=== PATIENT | male | born 1950 | race Caucasian/White ===

== ENCOUNTER 2017-07-03 15:36 | Inpatient (IN) | payer OTHER ==
[~2017-07-03] VITALS: Ht 185.4 cm; Wt 110.4 kg
[~2017-07-03 15:36] MED LIST: ALBUTEROL INHALER INH; ASPI-621 PO; ASPI-650 PO; CARB100T4 PO; CARB200T4 PO; CHOL10003 PO; DILT120T3 PO; DOCU240C53 PO; FAMO-79 PO; FOLI-17 PO; HEPA5000 SQ; HYDR-3237 PO; HYDR-3245 PO; IPRA3AMP INH; LEVO75TA5 PO; LOSA50TA6 PO; MAGN420T PO; MECL-76 PO; MORP15TA PO; MULT-516 PO; NYSTATIN CREAM TD; OMEP-110 PO; OXYC1TAB8 PO; POLY17PO5 PO; POTA20TA14 PO; SENN8.6T64 PO; SIMV20TA3 PO; TIOT18CA INH
[2017-07-03] MEDS ORDERED: SODIUM CHLORIDE 0.9% 1,000 ML IV ONE (15:43)
[2017-07-03] MEDS ORDERED: DILTIAZEM 5 MG/ML, 5ML ONE (15:48)
[2017-07-03 15:57] LABS: HEMATOCRIT 34.2 % (39.2-51.8); HEMOGLOBIN 11.5 g/dL (13.7-18.0); WHITE BLOOD COUNT 6.5 x10^3/uL (3.4-10)
[2017-07-03] MEDS ORDERED: SODIUM CHLORIDE FLUSH 10ML SYR IVF ONE (16:00)
[2017-07-03] MEDS ORDERED: DILTIAZEM 5 MG/ML, 5ML IV ONE (16:00)
[2017-07-03] MEDS ORDERED: DILTIAZEM 125 MG in DEXTROSE 5% 100 ML IV SCH (16:03)
[2017-07-03 16:05] LABS: ASPARTATE AMINO TRANSFERASE 23 U/L (15-37); BLOOD UREA NITROGEN 27 mg/dL (7-18)
[2017-07-03 16:10] LABS: IS PT STATUS REG ER OR PRE ER? YES
[2017-07-03] MEDS ORDERED: ASPI-496 PO (16:14)
[2017-07-03] MEDS ORDERED: ALBU18HF INH (16:15)
[2017-07-03] MEDS ORDERED: HYDR-3307 PO (16:17)
[2017-07-03] MEDS ORDERED: IBUP-1484 PO (16:18)
[2017-07-03] MEDS ORDERED: HEPARIN 5,000 UNITS/ML, 1ML IV PRN (16:30)
[2017-07-03] MEDS ORDERED: HEPARIN 5,000 UNITS/ML, 1ML IV ONE (16:30)
[2017-07-03] MEDS ORDERED: HEPARIN 25,000 UNITS/500ML PMX 500 ML IV PRN (16:30)
[2017-07-03] MEDS ORDERED: SODIUM CHLORIDE 0.9% 1,000ML IVBOLUS ONE (16:30)
[2017-07-03] MEDS ORDERED: HEPARIN 5,000 UNITS/ML, 1ML ONE (16:32)
[2017-07-03] MEDS ORDERED: HEPARIN 25,000 UNITS/500ML PMX 500 ML ONE (16:32)
[2017-07-03] MEDS ORDERED: OMNIPAQUE 350 MG/ML, 100ML BOTTLE ONE (16:47)
[2017-07-03] MEDS ORDERED: ONDANSETRON 2MG/ML, 2ML IVPush PRN (20:30)
[2017-07-03] MEDS ORDERED: HYDROcodone/APAP 10/325 MG TABLET PO PRN (20:30)
[2017-07-03] MEDS ORDERED: SODIUM CHLORIDE 0.9% 1,000 ML IV SCH (20:30)
[2017-07-03 21:27] VITALS: BP 162/67
[2017-07-03 23:03] VITALS: BP 114/72
[2017-07-03] MEDS: SODIUM CHLORIDE 0.9% 1,000 ML IV SCH (23:06)
[2017-07-03] MEDS: APIXABAN 5 MG TABLET PO SCH (23:06)
[2017-07-03] MEDS: METOPROLOL TARTRATE 25 MG TABLET PO SCH (23:07)
[2017-07-03] MEDS: SIMVASTATIN 20 MG TABLET PO SCH (23:07)
[2017-07-03] MEDS: CARBAMAZEPINE 200 MG TABLET PO SCH (23:07)
[2017-07-04 00:19] VITALS: BP 111/70
[2017-07-04 03:11] VITALS: BP 93/53
[2017-07-04] MEDS: METOPROLOL TARTRATE 25 MG TABLET PO SCH ×4 (03:27→21:32)
[2017-07-04] MEDS: ACETAMINOPHEN 325 MG TABLET PO PRN ×2 (03:34→20:36)
[2017-07-04 05:48] VITALS: BP 115/73
[2017-07-04] MEDS: LEVOTHYROXINE 200 MCG TABLET PO SCH (06:03)
[2017-07-04 06:25] LABS: BLOOD UREA NITROGEN 32 mg/dL (7-18)
[2017-07-04 08:30] VITALS: BP 137/65
[2017-07-04] MEDS: SODIUM CHLORIDE 0.9% 1,000 ML IV SCH ×2 (10:02→23:22)
[2017-07-04] MEDS: LOSARTAN 50MG TABLET PO SCH (10:10)
[2017-07-04] MEDS: MAGNESIUM OXIDE 400 MG TABLET PO SCH (10:11)
[2017-07-04] MEDS: ASPIRIN 81 MG TABLET EC PO SCH (10:11)
[2017-07-04] MEDS: APIXABAN 5 MG TABLET PO SCH ×2 (10:11→20:34)
[2017-07-04] MEDS: FOLIC ACID 1 MG TABLET PO SCH (10:11)
[2017-07-04] MEDS: DOCUSATE CALCIUM 240 MG CAPSULE PO SCH (10:12)
[2017-07-04] MEDS: CHOLECALCIFEROL 1,000 UNIT TABLET PO SCH (10:12)
[2017-07-04] MEDS: MULTIVITAMIN 1 TABLET PO SCH (10:12)
[2017-07-04] MEDS: CARBAMAZEPINE 200 MG TABLET PO SCH ×2 (10:12→20:35)
[2017-07-04] MEDS: ALBUTEROL/IPRATROPIUM 2.5MG/0.5MG, 3 ML NPPB SCH ×2 (11:22→19:48)
[2017-07-04 14:00] VITALS: BP 123/67
[2017-07-04 19:52] LABS: OCCBLD OBC PASS
[2017-07-04 20:34] VITALS: BP 128/80
[2017-07-04] MEDS: SIMVASTATIN 20 MG TABLET PO SCH (20:34)
[2017-07-05 02:32] VITALS: BP 111/68
[2017-07-05 03:37] VITALS: BP 125/73
[2017-07-05] MEDS: METOPROLOL TARTRATE 25 MG TABLET PO SCH ×4 (03:37→20:29)
[2017-07-05] MEDS: LEVOTHYROXINE 200 MCG TABLET PO SCH (05:21)
[2017-07-05 07:36] VITALS: BP 124/72
[2017-07-05] MEDS: MULTIVITAMIN 1 TABLET PO SCH (08:45)
[2017-07-05] MEDS: FOLIC ACID 1 MG TABLET PO SCH (08:45)
[2017-07-05] MEDS: CHOLECALCIFEROL 1,000 UNIT TABLET PO SCH (08:45)
[2017-07-05] MEDS: LOSARTAN 50MG TABLET PO SCH (08:45)
[2017-07-05] MEDS: MAGNESIUM OXIDE 400 MG TABLET PO SCH (08:45)
[2017-07-05] MEDS: CARBAMAZEPINE 200 MG TABLET PO SCH ×2 (08:45→20:28)
[2017-07-05] MEDS: ASPIRIN 81 MG TABLET EC PO SCH (08:45)
[2017-07-05] MEDS: APIXABAN 5 MG TABLET PO SCH (08:45)
[2017-07-05] MEDS: DOCUSATE CALCIUM 240 MG CAPSULE PO SCH ×2 (09:00→16:47)
[2017-07-05] MEDS: ALBUTEROL/IPRATROPIUM 2.5MG/0.5MG, 3 ML NPPB SCH ×2 (10:09→20:14)
[2017-07-05] MEDS: [UNRECOGNIZED DRUG - REMARK] MC SCH ×2 (11:30→16:25)
[2017-07-05] MEDS: DILTIAZEM 120 MG CAP.ER.12H PO SCH ×2 (12:57→23:45)
[2017-07-05 13:11] VITALS: BP 119/79
[2017-07-05] MEDS: ACETAMINOPHEN 325 MG TABLET PO PRN ×2 (16:46→21:35)
[2017-07-05 19:51] VITALS: BP 140/73
[2017-07-05] MEDS: SIMVASTATIN 10 MG TABLET PO SCH (20:29)
[2017-07-05] MEDS ORDERED: HEPARIN 25,000 UNITS/500ML PMX 500 ML IV PRN ×2 (21:00)
[2017-07-05] MEDS: HEPARIN 25,000 UNITS/500ML PMX 500 ML IV PRN (21:31)
[2017-07-05] MEDS: SODIUM CHLORIDE 0.9% 1,000 ML IV SCH (21:32)
[2017-07-06 01:10] VITALS: BP 110/73
[2017-07-06] MEDS: [UNRECOGNIZED DRUG - REMARK] MC SCH ×3 (03:30→18:12)
[2017-07-06 03:43] LABS: FERRITIN 273.7 ng/mL (26-388)
[2017-07-06] MEDS: METOPROLOL TARTRATE 25 MG TABLET PO SCH ×4 (04:14→23:27)
[2017-07-06] MEDS: LEVOTHYROXINE 200 MCG TABLET PO SCH (05:36)
[2017-07-06 07:46] VITALS: BP 141/81
[2017-07-06] MEDS: MAGNESIUM OXIDE 400 MG TABLET PO SCH (08:36)
[2017-07-06] MEDS: FOLIC ACID 1 MG TABLET PO SCH (08:36)
[2017-07-06] MEDS: DILTIAZEM 120 MG CAP.ER.12H PO SCH ×2 (08:36→21:19)
[2017-07-06] MEDS: LOSARTAN 50MG TABLET PO SCH (08:36)
[2017-07-06] MEDS: ASPIRIN 81 MG TABLET EC PO SCH (08:36)
[2017-07-06] MEDS: CARBAMAZEPINE 200 MG TABLET PO SCH ×2 (08:36→21:20)
[2017-07-06] MEDS: CHOLECALCIFEROL 1,000 UNIT TABLET PO SCH (08:36)
[2017-07-06] MEDS: DOCUSATE CALCIUM 240 MG CAPSULE PO SCH (08:36)
[2017-07-06] MEDS: MULTIVITAMIN 1 TABLET PO SCH (08:36)
[2017-07-06] MEDS: SODIUM CHLORIDE 0.9% 1,000 ML IV SCH (08:43)
[2017-07-06] MEDS: ALBUTEROL/IPRATROPIUM 2.5MG/0.5MG, 3 ML NPPB SCH ×2 (09:00→19:54)
[2017-07-06] MEDS ORDERED: HEPARIN 5,000 UNITS/ML, 1ML IV PRN (13:00)
[2017-07-06 13:41] VITALS: BP 146/81
[2017-07-06] MEDS: ACETAMINOPHEN 325 MG TABLET PO PRN ×2 (14:19→21:20)
[2017-07-06] MEDS: HEPARIN 25,000 UNITS/500ML PMX 500 ML IV PRN (17:22)
[2017-07-06 21:16] VITALS: BP 117/66
[2017-07-06] MEDS: SIMVASTATIN 10 MG TABLET PO SCH (21:19)
[2017-07-07 01:56] VITALS: BP 135/77
[2017-07-07 05:05] LABS: HEMATOCRIT 30.7 % (39.2-51.8); HEMOGLOBIN 10.5 g/dL (13.7-18.0)
[2017-07-07 05:10] LABS: BLOOD UREA NITROGEN 23 mg/dL (7-18)
[2017-07-07] MEDS: LEVOTHYROXINE 200 MCG TABLET PO SCH (05:30)
[2017-07-07] MEDS: SODIUM CHLORIDE 0.9% 1,000 ML IV SCH ×3 (05:30→19:30)
[2017-07-07] MEDS: METOPROLOL TARTRATE 25 MG TABLET PO SCH ×4 (05:31→21:25)
[2017-07-07] MEDS: ACETAMINOPHEN 325 MG TABLET PO PRN ×4 (05:33→22:26)
[2017-07-07] MEDS: ALBUTEROL/IPRATROPIUM 2.5MG/0.5MG, 3 ML NPPB SCH ×2 (06:52→18:15)
[2017-07-07 08:03] VITALS: BP 132/89
[2017-07-07] MEDS: MULTIVITAMIN 1 TABLET PO SCH (08:07)
[2017-07-07] MEDS: FOLIC ACID 1 MG TABLET PO SCH (08:07)
[2017-07-07] MEDS: LOSARTAN 50MG TABLET PO SCH (08:07)
[2017-07-07] MEDS: CHOLECALCIFEROL 1,000 UNIT TABLET PO SCH (08:07)
[2017-07-07] MEDS: CARBAMAZEPINE 200 MG TABLET PO SCH ×2 (08:07→21:23)
[2017-07-07] MEDS: DILTIAZEM 120 MG CAP.ER.12H PO SCH ×2 (08:08→21:00)
[2017-07-07] MEDS: MAGNESIUM OXIDE 400 MG TABLET PO SCH (08:08)
[2017-07-07] MEDS: DOCUSATE CALCIUM 240 MG CAPSULE PO SCH (08:08)
[2017-07-07 10:32] VITALS: BP 119/81
[2017-07-07] MEDS: HEPARIN 25,000 UNITS/500ML PMX 500 ML IV PRN (10:42)
[2017-07-07 15:46] VITALS: BP 147/82
[2017-07-07] MEDS ORDERED: GOLYTELY 4,000ML ORAL.SOL PO ONE (17:00)
[2017-07-07] MEDS ORDERED: HYDROcodone/APAP 10/325 MG TABLET PO PRN (19:30)
[2017-07-07 20:52] VITALS: BP 145/97
[2017-07-07] MEDS: SIMVASTATIN 10 MG TABLET PO SCH (21:23)
[2017-07-08 00:34] VITALS: BP 147/72
[2017-07-08] MEDS: SODIUM CHLORIDE 0.9% 1,000 ML IV SCH ×2 (05:08→22:03)
[2017-07-08] MEDS: LEVOTHYROXINE 200 MCG TABLET PO SCH (05:21)
[2017-07-08] MEDS: METOPROLOL TARTRATE 25 MG TABLET PO SCH ×4 (05:22→22:02)
[2017-07-08 08:17] VITALS: BP 153/80
[2017-07-08] MEDS: ALBUTEROL/IPRATROPIUM 2.5MG/0.5MG, 3 ML NPPB SCH ×2 (09:00→18:59)
[2017-07-08] MEDS: DILTIAZEM 120 MG CAP.ER.12H PO SCH ×2 (09:28→20:19)
[2017-07-08] MEDS ORDERED: ONDANSETRON 2MG/ML, 2ML ONE (11:05)
[2017-07-08] MEDS ORDERED: PROPOFOL 10 MG/ML, 20ML ONE (11:05)
[2017-07-08] MEDS ORDERED: DEXAMETHASONE 4 MG/ML, 1ML ONE (11:05)
[2017-07-08] MEDS ORDERED: ACETAMINOPHEN 325 MG TABLET PO PRN (12:00)
[2017-07-08] MEDS ORDERED: LABETALOL 5MG/ML, 20ML IV PRN (12:00)
[2017-07-08] MEDS ORDERED: hydrALAzine 20 MG/ML, 1ML IV PRN (12:00)
[2017-07-08] MEDS ORDERED: ONDANSETRON 2MG/ML, 2ML IVPush PRN (12:00)
[2017-07-08] MEDS ORDERED: PROMETHAZINE 25 MG/ML, 1ML IV PRN (12:00)
[2017-07-08] MEDS ORDERED: OXYcodone 5 MG/5 ML ORAL.SOL UDC PO PRN (12:00)
[2017-07-08] MEDS ORDERED: MEPERIDINE/PF 25MG/0.5ML IVPush PRN (12:00)
[2017-07-08] MEDS ORDERED: MIDAZOLAM 1 MG/ML, 2ML IV PRN (12:00)
[2017-07-08] MEDS ORDERED: ALBUTEROL SULFATE 2.5 MG/3 ML NPPB PRN (12:00)
[2017-07-08] MEDS ORDERED: HYDROmorphone 1 MG/ML, 1ML IV PRN (12:00)
[2017-07-08] MEDS ORDERED: FENTANYL PF 100 MCG/2ML IV PRN (12:00)
[2017-07-08] MEDS: CHOLECALCIFEROL 1,000 UNIT TABLET PO SCH (12:51)
[2017-07-08] MEDS: MULTIVITAMIN 1 TABLET PO SCH (12:51)
[2017-07-08] MEDS: CARBAMAZEPINE 200 MG TABLET PO SCH ×2 (12:51→20:19)
[2017-07-08] MEDS: LOSARTAN 50MG TABLET PO SCH (12:52)
[2017-07-08] MEDS: DOCUSATE CALCIUM 240 MG CAPSULE PO SCH (12:52)
[2017-07-08] MEDS: FOLIC ACID 1 MG TABLET PO SCH (12:52)
[2017-07-08] MEDS: MAGNESIUM OXIDE 400 MG TABLET PO SCH (12:52)
[2017-07-08] MEDS: ACETAMINOPHEN 325 MG TABLET PO PRN (12:55)
[2017-07-08] MEDS ORDERED: HEPARIN 5,000 UNITS/ML, 1ML IV PRN (13:00)
[2017-07-08] MEDS ORDERED: HEPARIN 25,000 UNITS/500ML PMX 500 ML IV PRN (13:00)
[2017-07-08 13:52] VITALS: BP 134/76
[2017-07-08 20:10] VITALS: BP 111/70
[2017-07-08] MEDS: APIXABAN 5 MG TABLET PO SCH (20:18)
[2017-07-08] MEDS: SIMVASTATIN 10 MG TABLET PO SCH (20:19)
[2017-07-08] MEDS ORDERED: DILTIAZEM 5 MG/ML, 5ML IVPush ONE (21:30)
[2017-07-09 02:06] VITALS: BP 113/75
[2017-07-09] MEDS: LEVOTHYROXINE 200 MCG TABLET PO SCH (05:53)
[2017-07-09] MEDS: METOPROLOL TARTRATE 25 MG TABLET PO SCH ×3 (05:54→17:25)
[2017-07-09 08:06] VITALS: BP 119/74
[2017-07-09] MEDS: DOCUSATE CALCIUM 240 MG CAPSULE PO SCH (08:16)
[2017-07-09] MEDS: MULTIVITAMIN 1 TABLET PO SCH (08:16)
[2017-07-09] MEDS: FOLIC ACID 1 MG TABLET PO SCH (08:17)
[2017-07-09] MEDS: CHOLECALCIFEROL 1,000 UNIT TABLET PO SCH (08:17)
[2017-07-09] MEDS: CARBAMAZEPINE 200 MG TABLET PO SCH ×2 (08:17→21:23)
[2017-07-09] MEDS: APIXABAN 5 MG TABLET PO SCH ×2 (08:17→21:23)
[2017-07-09] MEDS: MAGNESIUM OXIDE 400 MG TABLET PO SCH (08:17)
[2017-07-09] MEDS: LOSARTAN 50MG TABLET PO SCH (08:17)
[2017-07-09] MEDS: DILTIAZEM 120 MG CAP.ER.12H PO SCH ×2 (08:18→21:24)
[2017-07-09] MEDS: ALBUTEROL/IPRATROPIUM 2.5MG/0.5MG, 3 ML NPPB SCH ×2 (09:55→19:55)
[2017-07-09] MEDS: SODIUM CHLORIDE 0.9% 1,000 ML IV SCH (11:30)
[2017-07-09 13:40] VITALS: BP 138/80
[2017-07-09 18:46] VITALS: BP 145/77
[2017-07-09] MEDS: SIMVASTATIN 10 MG TABLET PO SCH (21:23)
[2017-07-10] MEDS: SODIUM CHLORIDE 0.9% 1,000 ML IV SCH ×2 (01:15→13:52)
[2017-07-10] MEDS: ACETAMINOPHEN 325 MG TABLET PO PRN (01:40)
[2017-07-10 03:49] VITALS: BP 157/76
[2017-07-10 06:05] VITALS: BP 133/88
[2017-07-10] MEDS: LEVOTHYROXINE 200 MCG TABLET PO SCH (06:09)
[2017-07-10] MEDS: METOPROLOL TARTRATE 25 MG TABLET PO SCH ×2 (06:09→17:27)
[2017-07-10 06:45] VITALS: BP 138/86
[2017-07-10] MEDS: MULTIVITAMIN 1 TABLET PO SCH (08:40)
[2017-07-10] MEDS: FOLIC ACID 1 MG TABLET PO SCH (08:40)
[2017-07-10] MEDS: APIXABAN 5 MG TABLET PO SCH ×2 (08:40→20:30)
[2017-07-10] MEDS: LOSARTAN 50MG TABLET PO SCH (08:40)
[2017-07-10] MEDS: CARBAMAZEPINE 200 MG TABLET PO SCH ×2 (08:40→20:30)
[2017-07-10] MEDS: MAGNESIUM OXIDE 400 MG TABLET PO SCH (08:40)
[2017-07-10] MEDS: CHOLECALCIFEROL 1,000 UNIT TABLET PO SCH (08:40)
[2017-07-10] MEDS: DILTIAZEM 120 MG CAP.ER.12H PO SCH ×2 (08:42→20:29)
[2017-07-10] MEDS: ALBUTEROL/IPRATROPIUM 2.5MG/0.5MG, 3 ML NPPB SCH ×2 (09:18→19:58)
[2017-07-10] MEDS ORDERED: LEVO200T PO (10:37)
[2017-07-10] MEDS ORDERED: METO25TA35 PO (10:37)
[2017-07-10] MEDS ORDERED: DILT120C11 PO (10:37)
[2017-07-10] MEDS ORDERED: APIX5TAB PO (10:37)
[2017-07-10] MEDS ORDERED: OMEP-110 PO (10:41)
[2017-07-10 14:18] VITALS: BP 123/69
[2017-07-10] MEDS ORDERED: DIGOXIN 0.25 MG/ML, 2ML IVPush ONE (16:30)
[2017-07-10 20:14] VITALS: BP 116/78
[2017-07-10] MEDS: DOCUSATE CALCIUM 240 MG CAPSULE PO SCH (20:29)
[2017-07-10] MEDS: SIMVASTATIN 10 MG TABLET PO SCH (20:31)
[2017-07-11 02:06] VITALS: BP 133/73
[2017-07-11] MEDS: SODIUM CHLORIDE 0.9% 1,000 ML IV SCH ×3 (03:30→15:11)
[2017-07-11 05:35] VITALS: BP 124/84
[2017-07-11] MEDS: LEVOTHYROXINE 200 MCG TABLET PO SCH (05:38)
[2017-07-11] MEDS: METOPROLOL TARTRATE 25 MG TABLET PO SCH ×2 (05:39→17:49)
[2017-07-11 06:19] LABS: BLOOD UREA NITROGEN 37 mg/dL (7-18)
[2017-07-11 06:42] VITALS: BP 128/87
[2017-07-11] MEDS: MULTIVITAMIN 1 TABLET PO SCH (08:29)
[2017-07-11] MEDS: CARBAMAZEPINE 200 MG TABLET PO SCH ×2 (08:29→19:58)
[2017-07-11] MEDS: CHOLECALCIFEROL 1,000 UNIT TABLET PO SCH (08:29)
[2017-07-11] MEDS: MAGNESIUM OXIDE 400 MG TABLET PO SCH (08:30)
[2017-07-11] MEDS: DOCUSATE CALCIUM 240 MG CAPSULE PO SCH (08:30)
[2017-07-11] MEDS: DILTIAZEM 120 MG CAP.ER.12H PO SCH ×2 (08:31→19:58)
[2017-07-11] MEDS: DIGOXIN 0.125 MG TABLET PO SCH (08:31)
[2017-07-11] MEDS: LOSARTAN 50MG TABLET PO SCH (08:31)
[2017-07-11] MEDS: APIXABAN 5 MG TABLET PO SCH ×2 (08:56→19:58)
[2017-07-11] MEDS: FOLIC ACID 1 MG TABLET PO SCH (08:56)
[2017-07-11] MEDS: ALBUTEROL/IPRATROPIUM 2.5MG/0.5MG, 3 ML NPPB SCH ×2 (09:42→19:34)
[2017-07-11 12:57] VITALS: BP 109/76
[2017-07-11 14:59] LABS: HEMATOCRIT 32.9 % (39.2-51.8); HEMOGLOBIN 11.2 g/dL (13.7-18.0); WHITE BLOOD COUNT 5.7 x10^3/uL (3.4-10)
[2017-07-11 18:41] VITALS: BP 138/68
[2017-07-11] MEDS: METOPROLOL 1 MG/ML, 5ML IVPush PRN (18:41)
[2017-07-11] MEDS: SIMVASTATIN 10 MG TABLET PO SCH (19:58)
[2017-07-12 01:16] VITALS: BP 109/77
[2017-07-12] MEDS: SODIUM CHLORIDE 0.9% 1,000 ML IV SCH ×2 (03:48→16:57)
[2017-07-12] MEDS: LEVOTHYROXINE 200 MCG TABLET PO SCH (05:56)
[2017-07-12 07:25] LABS: HEMATOCRIT 32.9 % (39.2-51.8); HEMOGLOBIN 11.1 g/dL (13.7-18.0); WHITE BLOOD COUNT 7.3 x10^3/uL (3.4-10)
[2017-07-12 07:34] LABS: BLOOD UREA NITROGEN 39 mg/dL (7-18)
[2017-07-12 07:37] VITALS: BP 159/81
[2017-07-12 07:38] LABS: ASPARTATE AMINO TRANSFERASE 20 U/L (15-37)
[2017-07-12] MEDS: CARBAMAZEPINE 200 MG TABLET PO SCH ×2 (08:31→20:07)
[2017-07-12] MEDS: MAGNESIUM OXIDE 400 MG TABLET PO SCH (08:31)
[2017-07-12] MEDS: FERROUS GLUCONATE 324 MG TABLET PO SCH (08:31)
[2017-07-12] MEDS: CHOLECALCIFEROL 1,000 UNIT TABLET PO SCH (08:31)
[2017-07-12] MEDS: DOCUSATE CALCIUM 240 MG CAPSULE PO SCH (08:31)
[2017-07-12] MEDS: FOLIC ACID 1 MG TABLET PO SCH (08:34)
[2017-07-12] MEDS: DIGOXIN 0.125 MG TABLET PO SCH (08:34)
[2017-07-12] MEDS: METOPROLOL TARTRATE 25 MG TABLET PO SCH ×2 (08:34→17:47)
[2017-07-12] MEDS: APIXABAN 5 MG TABLET PO SCH ×2 (08:35→20:06)
[2017-07-12] MEDS: LOSARTAN 50MG TABLET PO SCH (08:35)
[2017-07-12] MEDS: DILTIAZEM 120 MG CAP.ER.12H PO SCH ×2 (08:35→20:06)
[2017-07-12] MEDS: MULTIVITAMIN 1 TABLET PO SCH (08:36)
[2017-07-12] MEDS: ALBUTEROL/IPRATROPIUM 2.5MG/0.5MG, 3 ML NPPB SCH ×2 (09:00→20:34)
[2017-07-12 13:44] VITALS: BP 132/82
[2017-07-12] MEDS: METOPROLOL 1 MG/ML, 5ML IVPush PRN (15:59)
[2017-07-12] MEDS: SIMVASTATIN 10 MG TABLET PO SCH (20:07)
[2017-07-12 20:10] VITALS: BP 118/81
[2017-07-12] MEDS ORDERED: METOPROLOL 1 MG/ML, 5ML IVPush ONE (21:00)
[2017-07-12] MEDS ORDERED: METOPROLOL 1 MG/ML, 5ML IVPush PRN (21:00)
[2017-07-12] MEDS: ACETAMINOPHEN 325 MG TABLET PO PRN (21:44)
[2017-07-13 01:24] VITALS: BP 112/72
[2017-07-13] MEDS: SODIUM CHLORIDE 0.9% 1,000 ML IV SCH ×2 (05:36→17:35)
[2017-07-13] MEDS: LEVOTHYROXINE 200 MCG TABLET PO SCH (05:36)
[2017-07-13] MEDS: METOPROLOL TARTRATE 25 MG TABLET PO SCH ×2 (05:36→17:32)
[2017-07-13] MEDS: ONDANSETRON 2MG/ML, 2ML IVPush PRN (05:52)
[2017-07-13 06:46] VITALS: BP 125/77
[2017-07-13] MEDS: DIGOXIN 0.125 MG TABLET PO SCH (08:46)
[2017-07-13] MEDS: APIXABAN 5 MG TABLET PO SCH ×2 (08:46→19:54)
[2017-07-13] MEDS: LOSARTAN 50MG TABLET PO SCH (08:46)
[2017-07-13] MEDS: CHOLECALCIFEROL 1,000 UNIT TABLET PO SCH (08:46)
[2017-07-13] MEDS: MAGNESIUM OXIDE 400 MG TABLET PO SCH (08:46)
[2017-07-13] MEDS: DOCUSATE CALCIUM 240 MG CAPSULE PO SCH (08:46)
[2017-07-13] MEDS: CARBAMAZEPINE 200 MG TABLET PO SCH ×2 (08:46→19:54)
[2017-07-13] MEDS: FERROUS GLUCONATE 324 MG TABLET PO SCH (08:46)
[2017-07-13] MEDS: DILTIAZEM 120 MG CAP.ER.12H PO SCH ×2 (08:47→19:54)
[2017-07-13] MEDS: MULTIVITAMIN 1 TABLET PO SCH (08:47)
[2017-07-13] MEDS: ALBUTEROL/IPRATROPIUM 2.5MG/0.5MG, 3 ML NPPB SCH ×2 (09:00→21:35)
[2017-07-13] MEDS: ACETAMINOPHEN 325 MG TABLET PO PRN ×3 (12:02→21:24)
[2017-07-13 15:45] VITALS: BP 132/73
[2017-07-13 18:26] VITALS: BP 124/92
[2017-07-13] MEDS: SIMVASTATIN 10 MG TABLET PO SCH (19:54)
[2017-07-14] VITALS (7 sets, daily range): BP systolic 97–129; BP diastolic 63–93
[2017-07-14] MEDS: METOPROLOL TARTRATE 25 MG TABLET PO SCH (05:01)
[2017-07-14] MEDS: LEVOTHYROXINE 200 MCG TABLET PO SCH (05:01)
[2017-07-14] MEDS: SODIUM CHLORIDE 0.9% 1,000 ML IV SCH ×2 (06:46→21:08)
[2017-07-14] MEDS: DILTIAZEM 120 MG CAP.ER.12H PO SCH ×2 (08:26→21:07)
[2017-07-14] MEDS: CHOLECALCIFEROL 1,000 UNIT TABLET PO SCH (08:26)
[2017-07-14] MEDS: CARBAMAZEPINE 200 MG TABLET PO SCH ×2 (08:26→21:07)
[2017-07-14] MEDS: DIGOXIN 0.125 MG TABLET PO SCH (08:27)
[2017-07-14] MEDS: APIXABAN 5 MG TABLET PO SCH ×2 (08:27→21:07)
[2017-07-14] MEDS: MULTIVITAMIN 1 TABLET PO SCH (08:27)
[2017-07-14] MEDS: DOCUSATE CALCIUM 240 MG CAPSULE PO SCH (08:27)
[2017-07-14] MEDS: MAGNESIUM OXIDE 400 MG TABLET PO SCH (08:27)
[2017-07-14] MEDS: LOSARTAN 50MG TABLET PO SCH (08:28)
[2017-07-14] MEDS: FERROUS GLUCONATE 324 MG TABLET PO SCH (08:28)
[2017-07-14] MEDS: ALBUTEROL/IPRATROPIUM 2.5MG/0.5MG, 3 ML NPPB SCH ×2 (09:20→20:40)
[2017-07-14] MEDS: METOPROLOL TARTRATE 50 MG TABLET PO SCH ×3 (10:49→22:45)
[2017-07-14] MEDS: ACETAMINOPHEN 325 MG TABLET PO PRN (12:00)
[2017-07-14] MEDS: ONDANSETRON 2MG/ML, 2ML IVPush PRN (19:22)
[2017-07-14] MEDS: SIMVASTATIN 10 MG TABLET PO SCH (21:07)
[2017-07-15 01:54] VITALS: BP 92/55
[2017-07-15 06:11] VITALS: BP 116/75
[2017-07-15] MEDS: LEVOTHYROXINE 200 MCG TABLET PO SCH (06:12)
[2017-07-15] MEDS: METOPROLOL TARTRATE 50 MG TABLET PO SCH ×4 (06:12→21:35)
[2017-07-15 07:30] LABS: HEMATOCRIT 28.1 % (39.2-51.8); HEMOGLOBIN 9.5 g/dL (13.7-18.0); WHITE BLOOD COUNT 8.2 x10^3/uL (3.4-10)
[2017-07-15 07:41] LABS: ASPARTATE AMINO TRANSFERASE 22 U/L (15-37); BLOOD UREA NITROGEN 42 mg/dL (7-18)
[2017-07-15] MEDS: ACETAMINOPHEN 325 MG TABLET PO PRN ×2 (07:53→18:02)
[2017-07-15 07:57] VITALS: BP 121/72
[2017-07-15] MEDS: ALBUTEROL/IPRATROPIUM 2.5MG/0.5MG, 3 ML NPPB SCH ×2 (08:00→19:01)
[2017-07-15] MEDS: LOSARTAN 25MG TABLET PO SCH (08:34)
[2017-07-15] MEDS: CHOLECALCIFEROL 1,000 UNIT TABLET PO SCH (08:35)
[2017-07-15] MEDS: MAGNESIUM OXIDE 400 MG TABLET PO SCH (08:35)
[2017-07-15] MEDS: DOCUSATE CALCIUM 240 MG CAPSULE PO SCH (08:35)
[2017-07-15] MEDS: FERROUS GLUCONATE 324 MG TABLET PO SCH ×3 (08:35→21:35)
[2017-07-15] MEDS: CARBAMAZEPINE 200 MG TABLET PO SCH ×2 (08:35→21:34)
[2017-07-15] MEDS: DILTIAZEM 120 MG CAP.ER.12H PO SCH ×2 (08:36→21:35)
[2017-07-15] MEDS: DIGOXIN 0.125 MG TABLET PO SCH (08:36)
[2017-07-15] MEDS: MULTIVITAMIN 1 TABLET PO SCH (08:36)
[2017-07-15] MEDS ORDERED: SODIUM CHLORIDE 0.9% 1,000 ML IV SCH (08:57)
[2017-07-15] MEDS ORDERED: REGADENOSON 0.4 MG/5 ML SYRINGE ONE (09:08)
[2017-07-15] MEDS: SODIUM CHLORIDE 0.9% 1,000 ML IV SCH (13:06)
[2017-07-15 18:04] VITALS: BP 115/80
[2017-07-15 19:56] VITALS: BP 102/67
[2017-07-15] MEDS: SIMVASTATIN 10 MG TABLET PO SCH (21:34)
[2017-07-16 00:19] VITALS: BP 102/65
[2017-07-16] MEDS: SODIUM CHLORIDE 0.9% 1,000 ML IV SCH ×2 (02:00→17:37)
[2017-07-16] MEDS: LEVOTHYROXINE 200 MCG TABLET PO SCH (06:10)
[2017-07-16 07:45] VITALS: BP 135/81
[2017-07-16] MEDS ORDERED: FENTANYL PF 100 MCG/2ML ONE (07:58)
[2017-07-16] MEDS ORDERED: ISOPROTERENOL 0.2MG/ML, 5ML ONE (07:58)
[2017-07-16] MEDS ORDERED: ADENOSINE 6 MG/2 ML ONE (07:58)
[2017-07-16] MEDS ORDERED: MIDAZOLAM 1 MG/ML, 5ML ONE (07:58)
[2017-07-16] MEDS ORDERED: LIDOCAINE 2%, 20ML ONE (07:59)
[2017-07-16] MEDS: METOPROLOL TARTRATE 50 MG TABLET PO SCH ×3 (08:00→20:38)
[2017-07-16] MEDS: ALBUTEROL/IPRATROPIUM 2.5MG/0.5MG, 3 ML NPPB SCH ×2 (08:13→14:30)
[2017-07-16 08:14] LABS: HEMATOCRIT 30.4 % (39.2-51.8); HEMOGLOBIN 10.1 g/dL (13.7-18.0); WHITE BLOOD COUNT 7.5 x10^3/uL (3.4-10)
[2017-07-16 08:20] LABS: BLOOD UREA NITROGEN 45 mg/dL (7-18)
[2017-07-16] MEDS: DIGOXIN 0.125 MG TABLET PO SCH (09:00)
[2017-07-16] MEDS: DILTIAZEM 120 MG CAP.ER.12H PO SCH (09:00)
[2017-07-16] MEDS ORDERED: DIPHENHYDRAMINE 50 MG/ML, 1ML ONE (09:41)
[2017-07-16 10:18] VITALS: BP 126/74
[2017-07-16] MEDS: DOCUSATE CALCIUM 240 MG CAPSULE PO SCH (10:33)
[2017-07-16] MEDS: CARBAMAZEPINE 200 MG TABLET PO SCH ×2 (10:35→20:37)
[2017-07-16] MEDS: MAGNESIUM OXIDE 400 MG TABLET PO SCH (10:36)
[2017-07-16] MEDS: FERROUS GLUCONATE 324 MG TABLET PO SCH ×3 (10:36→20:38)
[2017-07-16] MEDS: MULTIVITAMIN 1 TABLET PO SCH (10:38)
[2017-07-16] MEDS: CHOLECALCIFEROL 1,000 UNIT TABLET PO SCH (10:39)
[2017-07-16] MEDS: LOSARTAN 25MG TABLET PO SCH (10:42)
[2017-07-16] MEDS: ACETAMINOPHEN 325 MG TABLET PO PRN (12:58)
[2017-07-16 13:50] VITALS: BP 153/77
[2017-07-16] MEDS ORDERED: ALBUTEROL/IPRATROPIUM 2.5MG/0.5MG, 3 ML NPPB PRN (14:30)
[2017-07-16 20:30] VITALS: BP 119/63
[2017-07-16] MEDS: SIMVASTATIN 10 MG TABLET PO SCH (20:37)
[2017-07-17 01:40] VITALS: BP 129/78
[2017-07-17 05:25] LABS: HEMATOCRIT 27.2 % (39.2-51.8); HEMOGLOBIN 9.3 g/dL (13.7-18.0); WHITE BLOOD COUNT 6.5 x10^3/uL (3.4-10)
[2017-07-17] MEDS: LEVOTHYROXINE 200 MCG TABLET PO SCH (05:29)
[2017-07-17 05:34] LABS: BLOOD UREA NITROGEN 47 mg/dL (7-18)
[2017-07-17 07:15] VITALS: BP 157/74
[2017-07-17] MEDS: SODIUM CHLORIDE 0.9% 1,000 ML IV SCH (07:22)
[2017-07-17] MEDS: DOCUSATE CALCIUM 240 MG CAPSULE PO SCH (08:17)
[2017-07-17] MEDS: CARBAMAZEPINE 200 MG TABLET PO SCH (08:17)
[2017-07-17] MEDS: CHOLECALCIFEROL 1,000 UNIT TABLET PO SCH (08:17)
[2017-07-17] MEDS: MAGNESIUM OXIDE 400 MG TABLET PO SCH (08:17)
[2017-07-17] MEDS: MULTIVITAMIN 1 TABLET PO SCH (08:17)
[2017-07-17] MEDS: FERROUS GLUCONATE 324 MG TABLET PO SCH (08:17)
[2017-07-17] MEDS: METOPROLOL TARTRATE 50 MG TABLET PO SCH (08:17)
[2017-07-17] MEDS: ALBUTEROL/IPRATROPIUM 2.5MG/0.5MG, 3 ML NPPB SCH (09:25)
[2017-07-17] MEDS ORDERED: METO50TA82 PO (11:00)
[2017-07-17] MEDS ORDERED: FERR325T16 PO (11:00)
[2017-07-17] MEDS: ACETAMINOPHEN 325 MG TABLET PO PRN (11:51)
[2017-07-17] MEDS ORDERED: APIXABAN 5 MG TABLET PO ONE (13:30)
[2017-07-17 14:16] VITALS: BP 138/72
== END 2017-07-17 16:01 | DRG 273 ==
LOC: ED 17:51 → EDIP 19:07 → SUATTDRO 20:05 → 5SO 21:26
PROVIDERS: ADMIT Hospitalist; ATTEND Family Medicine
PROC: 0DJD8ZZ Inspection of Lower Intestinal Tract, Via Natural or Artificial Opening Endoscopic (ICD-10-PCS; 2017-07-08)
PROC: 0DJ08ZZ Inspection of Upper Intestinal Tract, Via Natural or Artificial Opening Endoscopic (ICD-10-PCS; principal; 2017-07-08 11:00)
PROC: 02583ZZ Destruction of Conduction Mechanism, Percutaneous Approach (ICD-10-PCS; 2017-07-16)
PROC: 4A0234Z Measurement of Cardiac Electrical Activity, Percutaneous Approach (ICD-10-PCS; 2017-07-16)
DX: I48.91 Unspecified atrial fibrillation (principal); K29.71 Gastritis, unspecified, with bleeding; J96.11 Chronic respiratory failure with hypoxia; I27.0 Primary pulmonary hypertension; I42.9 Cardiomyopathy, unspecified; D68.69 Other thrombophilia; E66.2 Morbid (severe) obesity with alveolar hypoventilation; Z99.81 Dependence on supplemental oxygen; I48.92 Unspecified atrial flutter; Z68.32 Body mass index [BMI] 32.0-32.9, adult; D12.0 Benign neoplasm of cecum; D50.9 Iron deficiency anemia, unspecified; D53.9 Nutritional anemia, unspecified; D75.89 Other specified diseases of blood and blood-forming organs; E03.9 Hypothyroidism, unspecified; E78.00 Pure hypercholesterolemia, unspecified; F10.10 Alcohol abuse, uncomplicated; F17.200 Nicotine dependence, unspecified, uncomplicated; G40.909 Epilepsy, unspecified, not intractable, without status epilepticus; G89.29 Other chronic pain; I12.9 Hypertensive chronic kidney disease with stage 1 through stage 4 chronic kidney disease, or unspecified chronic kidney disease; J43.9 Emphysema, unspecified; K29.60 Other gastritis without bleeding; K59.00 Constipation, unspecified; M19.90 Unspecified osteoarthritis, unspecified site; N18.9 Chronic kidney disease, unspecified; R29.810 Facial weakness; Z79.01 Long term (current) use of anticoagulants; Z82.49 Family history of ischemic heart disease and other diseases of the circulatory system; Z83.3 Family history of diabetes mellitus; Z96.641 Presence of right artificial hip joint
CPT/HCPCS: 36415; 70450; 71010; 71275; 76770; 78452; 80047; 80048; 80053; 80156; 80162; 80307; 81003; 82272; 82607; 82728; 82746; 83540; 83550; 83735; 83880; 84100; 84443; 84484; 85025; 85045; 85520; 85610; 93005; 93017; 93306; 93308; 93325; 93613; 93621; 93653; 93880; 94640; 96365; 96375; 99156; 99157; C1731; C1766; C1894; J0153; J1100; J1644; J2250; J2405; J2704; J2785; J3010; J3490; J7620; Q9967; A9502; C1730; C2630; C9898; G0479; J1160; J1200; J7030

== ENCOUNTER 2018-08-15 05:17 | Inpatient (IN) | payer OTHER ==
[~2018-08-15] VITALS: Ht 180.3 cm; Wt 114.0 kg
[~2018-08-15 05:17] MED LIST changes: +ALBU18HF INH; +APIX5TAB PO; +ASPI-496 PO; +DILT120C11 PO; +DILT120C75 PO; +FERR325T16 PO; -HEPA5000 SQ; +HEPA50002 SQ; +HYDR-3307 PO; +IBUP-1484 PO; -IPRA3AMP INH; +IPRA3AMP30 INH; +IPRA3AMP30 NPPB; +LEVO200T PO; +LEVO750T26 PO; -LOSA50TA6 PO; +LOSA50TA7 PO; +METO25TA35 PO; +METO50TA82 PO
[2018-08-15] MEDS ORDERED: DILTIAZEM 5 MG/ML, 5ML ONE (05:36)
[2018-08-15 05:58] LABS: MEAN CORPUSCULAR HEMOGLOBIN 37.8 pg (27.5-34.5); MEAN CORPUSCULAR HGB CONC 34.1 g/dL (33.2-36.2); MEAN CORPUSCULAR VOLUME 111.1 fL (81-97); MEAN PLATELET VOLUME 8.3 fL (7.4-10.4); PLATELET COUNT 141 x10^3/uL (130-400); RED BLOOD COUNT 2.97 x10^6/uL (4.38-5.82); RED CELL DISTRIBUTION WIDTH 15.4 % (9.4-14.8)
[2018-08-15] MEDS ORDERED: DILTIAZEM 5 MG/ML, 5ML IV ONE ×2 (06:00→06:30)
[2018-08-15] MEDS ORDERED: SODIUM CHLORIDE FLUSH 10ML SYR IVF ONE (06:00)
[2018-08-15 06:06] LABS: ALANINE AMINOTRANSFERASE 17 U/L (12-78); ALBUMIN 3.6 g/dL (3.4-5.0); ANION GAP 10 mmol/L (5-15); CALCIUM 8.3 mg/dL (8.5-10.1); CHLORIDE 108 mmol/L (98-107); CREATININE 1.78 mg/dL (0.7-1.3)
[2018-08-15] MEDS ORDERED: POTA20TA14 PO (06:06)
[2018-08-15] MEDS ORDERED: GABA600T2 PO (06:06)
[2018-08-15] MEDS ORDERED: CYAN100028 PO (06:06)
[2018-08-15] MEDS ORDERED: ACET325T14 PO (06:06)
[2018-08-15] MEDS ORDERED: HYDR-3237 PO (06:06)
[2018-08-15] MEDS ORDERED: MECL-76 PO (06:06)
[2018-08-15] MEDS ORDERED: CHOL100012 PO (06:06)
[2018-08-15] MEDS ORDERED: TIOT18CA INH (06:06)
[2018-08-15 06:11] LABS: ALKALINE PHOSPHATASE 108 U/L (45-117); BILIRUBIN,TOTAL 0.2 mg/dL (0.2-1.0); T4 (THYROXINE) 5.5 mcg/dL (4.5-12.1); TOTAL PROTEIN 7.9 g/dL (6.4-8.2); TROPONIN I < 0.015 ng/mL (0.000-0.045)
[2018-08-15 06:24] LABS: BASOPHILS # (AUTO) 0.02 x10^3/uL (0-0.1); BASOPHILS % (AUTO) 0 % (0-1); EOSINOPHILS # (AUTO) 0.11 x10^3/uL (0-0.4); EOSINOPHILS % (AUTO) 2 % (1-7); LYMPHOCYTES # (AUTO) 1.98 x10^3/uL (1-3.4); LYMPHOCYTES % (AUTO) 35 % (22-44); MD SCAN; MONOCYTES # (AUTO) 0.48 x10^3/uL (0.2-0.8); MONOCYTES % (AUTO) 9 % (2-9); NEUTROPHILS # (AUTO) 3.01 x10^3/uL (1.8-6.8); NEUTROPHILS % (AUTO) 54 % (42-75)
[2018-08-15] MEDS ORDERED: SODIUM CHLORIDE FLUSH 10ML SYR IVF PRN (07:00)
[2018-08-15] MEDS ORDERED: MORPHINE SULFATE 4 MG/ML, 1ML IVPush PRN (08:00)
[2018-08-15] MEDS ORDERED: NITROGLYCERIN 0.4 MG BOTTLE (25 TABS) SL PRN (08:00)
[2018-08-15] MEDS ORDERED: ACETAMINOPHEN 325 MG TABLET PO PRN ×2 (08:00→08:30)
[2018-08-15 08:10] VITALS: BP 140/80
[2018-08-15] MEDS ORDERED: ALBUTEROL SULFATE INH PRN (08:30)
[2018-08-15] MEDS ORDERED: HYDROcodone/APAP 5/325 TABLET PO PRN (08:30)
[2018-08-15] MEDS: HEPARIN 5,000 UNITS/ML, 1ML SQ SCH ×2 (08:30→18:07)
[2018-08-15] MEDS: DOCUSATE CALCIUM 240 MG CAPSULE PO SCH (09:00)
[2018-08-15] MEDS ORDERED: Tiotropium Bromide** (Spiriva**) 18 MCG) INH SCH (09:00)
[2018-08-15] MEDS: LEVOTHYROXINE 200 MCG TABLET PO SCH (09:00)
[2018-08-15] MEDS: ASPIRIN 81 MG TABLET EC PO SCH (09:11)
[2018-08-15] MEDS: CARBAMAZEPINE 200 MG TABLET PO SCH ×2 (09:11→20:12)
[2018-08-15] MEDS: FERROUS GLUCONATE 324 MG TABLET PO SCH ×3 (09:11→18:07)
[2018-08-15] MEDS: METOPROLOL TARTRATE 50 MG TABLET PO SCH ×2 (09:12→18:07)
[2018-08-15] MEDS: GABAPENTIN 300 MG CAPSULE PO SCH (09:12)
[2018-08-15] MEDS: FOLIC ACID 1 MG TABLET PO SCH (09:12)
[2018-08-15] MEDS: MAGNESIUM OXIDE 400 MG TABLET PO SCH (09:12)
[2018-08-15] MEDS: CHOLECALCIFEROL 1,000 UNIT TABLET PO SCH (09:12)
[2018-08-15] MEDS ORDERED: IPRATROPIUM NPPB SCH (11:00)
[2018-08-15] MEDS ORDERED: ALBUTEROL SULFATE NPPB SCH (11:00)
[2018-08-15] MEDS ORDERED: ALBUTEROL/IPRATROPIUM 2.5MG/0.5MG, 3 ML NPPB PRN (11:30)
[2018-08-15 12:28] LABS: TROPONIN I 0.027 ng/mL (0.000-0.045)
[2018-08-15 13:14] VITALS: BP 147/78
[2018-08-15] MEDS: ALBUTEROL/IPRATROPIUM 2.5MG/0.5MG, 3 ML NPPB SCH ×2 (14:54→20:20)
[2018-08-15 18:19] LABS: TROPONIN I < 0.015 ng/mL (0.000-0.045)
[2018-08-15 18:45] VITALS: BP 121/74
[2018-08-15] MEDS: SIMVASTATIN 20 MG TABLET PO SCH (20:12)
[2018-08-16] MEDS: HEPARIN 5,000 UNITS/ML, 1ML SQ SCH ×3 (00:07→17:06)
[2018-08-16 00:36] VITALS: BP 121/74
[2018-08-16 03:01] LABS: CULTURE INDICATED? NO; MICROSCOPIC NOT IND
[2018-08-16] MEDS: ALBUTEROL/IPRATROPIUM 2.5MG/0.5MG, 3 ML NPPB SCH ×4 (03:52→21:00)
[2018-08-16 05:11] LABS: MEAN CORPUSCULAR HEMOGLOBIN 37.3 pg (27.5-34.5); MEAN CORPUSCULAR HGB CONC 33.8 g/dL (33.2-36.2); MEAN CORPUSCULAR VOLUME 110.4 fL (81-97); MEAN PLATELET VOLUME 8.6 fL (7.4-10.4); PLATELET COUNT 128 x10^3/uL (130-400); RED BLOOD COUNT 2.53 x10^6/uL (4.38-5.82); RED CELL DISTRIBUTION WIDTH 15.8 % (9.4-14.8)
[2018-08-16 05:16] LABS: ANION GAP 8 mmol/L (5-15); CALCIUM 7.6 mg/dL (8.5-10.1); CHLORIDE 107 mmol/L (98-107); CREATININE 1.49 mg/dL (0.7-1.3)
[2018-08-16 05:50] LABS: MD YES
[2018-08-16 05:53] LABS: EOS#(MANUAL) 0.09 x10^3/uL (0.0-0.4); EOS% (MANUAL) 2 % (1-7); LYMPH#(MANUAL) 1.75 x10^3/uL (1-3.4); LYMPHS% (MANUAL) 38 % (22-44); MONOS#(MANUAL) 0.23 x10^3/uL (0.3-2.7); MONOS% (MANUAL) 5 % (2-9); SEG#(MANUAL) 2.53 x10^3/uL (1.8-6.8); SEGS% (MANUAL) 55 % (42-75)
[2018-08-16 05:54] LABS: ANISOCYTOSIS 1+; POLYCHROMASIA 1+
[2018-08-16 05:55] LABS: <PLATELET ESTIMATE> ADEQUATE; <PLT MORPHOLOGY> NORMAL PLT MORPH
[2018-08-16] MEDS: METOPROLOL TARTRATE 50 MG TABLET PO SCH ×2 (06:11→21:39)
[2018-08-16] MEDS: LEVOTHYROXINE 200 MCG TABLET PO SCH (06:11)
[2018-08-16 06:48] VITALS: BP 138/74
[2018-08-16] MEDS: FERROUS GLUCONATE 324 MG TABLET PO SCH ×3 (08:26→17:05)
[2018-08-16] MEDS: MAGNESIUM OXIDE 400 MG TABLET PO SCH (08:26)
[2018-08-16] MEDS: LOSARTAN 50MG TABLET PO SCH (08:26)
[2018-08-16] MEDS: CARBAMAZEPINE 200 MG TABLET PO SCH ×2 (08:26→21:39)
[2018-08-16] MEDS: ASPIRIN 81 MG TABLET EC PO SCH (08:26)
[2018-08-16] MEDS: CHOLECALCIFEROL 1,000 UNIT TABLET PO SCH (08:26)
[2018-08-16] MEDS: GABAPENTIN 300 MG CAPSULE PO SCH (08:26)
[2018-08-16] MEDS: FOLIC ACID 1 MG TABLET PO SCH (08:27)
[2018-08-16] MEDS: DOCUSATE CALCIUM 240 MG CAPSULE PO SCH (08:27)
[2018-08-16 13:40] VITALS: BP 136/70
[2018-08-16 19:23] VITALS: BP 124/70
[2018-08-16] MEDS: SIMVASTATIN 20 MG TABLET PO SCH (21:39)
[2018-08-17] MEDS: HEPARIN 5,000 UNITS/ML, 1ML SQ SCH ×2 (00:45→08:15)
[2018-08-17 01:19] VITALS: BP 121/70
[2018-08-17] MEDS: ALBUTEROL/IPRATROPIUM 2.5MG/0.5MG, 3 ML NPPB SCH ×2 (03:00→07:35)
[2018-08-17] MEDS: LEVOTHYROXINE 200 MCG TABLET PO SCH (06:30)
[2018-08-17 06:48] VITALS: BP 135/73
[2018-08-17] MEDS: METOPROLOL TARTRATE 50 MG TABLET PO SCH (08:00)
[2018-08-17] MEDS: CHOLECALCIFEROL 1,000 UNIT TABLET PO SCH (08:13)
[2018-08-17] MEDS: GABAPENTIN 300 MG CAPSULE PO SCH (08:13)
[2018-08-17] MEDS: DOCUSATE CALCIUM 240 MG CAPSULE PO SCH (08:13)
[2018-08-17] MEDS: FERROUS GLUCONATE 324 MG TABLET PO SCH ×2 (08:13→12:17)
[2018-08-17] MEDS: MAGNESIUM OXIDE 400 MG TABLET PO SCH (08:14)
[2018-08-17] MEDS: ASPIRIN 81 MG TABLET EC PO SCH (08:14)
[2018-08-17] MEDS: LOSARTAN 50MG TABLET PO SCH (08:14)
[2018-08-17] MEDS: FOLIC ACID 1 MG TABLET PO SCH (08:14)
[2018-08-17] MEDS: CARBAMAZEPINE 200 MG TABLET PO SCH (08:14)
[2018-08-17] MEDS ORDERED: METOPROLOL TARTRATE 50 MG TABLET PO SCH (18:00)
== END 2018-08-17 13:35 | disposition home or self-care (01) | DRG 309 ==
LOC: ED 07:00 → EDIP 07:11 → 5SO 08:06
PROVIDERS: ADMIT Hospitalist; ATTEND Hospitalist
DX: I48.0 Paroxysmal atrial fibrillation (principal); D68.69 Other thrombophilia; I20.0 Unstable angina; E03.9 Hypothyroidism, unspecified; D50.9 Iron deficiency anemia, unspecified; D17.9 Benign lipomatous neoplasm, unspecified; J44.9 Chronic obstructive pulmonary disease, unspecified; K29.70 Gastritis, unspecified, without bleeding; R06.89 Other abnormalities of breathing; N18.3 Chronic kidney disease, stage 3 (moderate); I12.9 Hypertensive chronic kidney disease with stage 1 through stage 4 chronic kidney disease, or unspecified chronic kidney disease; G40.909 Epilepsy, unspecified, not intractable, without status epilepticus; G47.33 Obstructive sleep apnea (adult) (pediatric); E78.5 Hyperlipidemia, unspecified; G89.29 Other chronic pain; D53.9 Nutritional anemia, unspecified; Z83.3 Family history of diabetes mellitus; Z79.899 Other long term (current) drug therapy; Z79.1 Long term (current) use of non-steroidal anti-inflammatories (NSAID); Z79.2 Long term (current) use of antibiotics
CPT/HCPCS: 36415; 99291; J7620; 71045; 80048; 80053; 80156; 81003; 83735; 83880; 84436; 84443; 84484; 85025; 90656; 93005; 93306; 94640; 96374; 96376; G0378; J1644

== ENCOUNTER 2018-12-05 02:59 | Inpatient (IN) | payer OTHER ==
[~2018-12-05] VITALS: Ht 188 cm; Wt 124.5 kg
[~2018-12-05 02:59] MED LIST changes: +ACET325T14 PO; -ASPI-621 PO; +ASPI81TA45 PO; +CHOL100012 PO; +CYAN100028 PO; -DILT120C75 PO; +DILT120C88 PO; +GABA600T7 PO; +LOSA50TA14 PO; -LOSA50TA7 PO
[2018-12-05] MEDS ORDERED: ALBUTEROL/IPRATROPIUM 2.5MG/0.5MG, 3 ML ONE ×2 (03:21→10:33)
[2018-12-05] MEDS ORDERED: ALBUTEROL/IPRATROPIUM 2.5MG/0.5MG, 3 ML NPPB ONE (03:30)
[2018-12-05] MEDS ORDERED: methylPREDNISolone SOD SUCC 125 MG/2 ML IVP ONE (03:30)
[2018-12-05] MEDS ORDERED: SODIUM CHLORIDE FLUSH 10ML SYR IVF ONE (03:30)
--- NOTE | 2018-12-05 03:30 | NUR ---
PT. ARRIVES BY [facility] WITH C/O COUGH, CONGESTION AND FEELING SOB. PT.'S 12 LEAD EKG WAS DONE. IV ACCESS WAS ESTABLISHED. PT. HAS THE CP MONITOR IN PLACE. PT.'S LUNGS ARE DIMINISHED IN THE BASES. PT.'S ABD. IS ROUND AND FIRM. PULSES ARE PRESENT THROUGHOUT. PT. HAS 02 ON AT 4 LITERS PER NASAL CANNULA. PT. WEARS 4 LITERS OF O2 AT HOME. PT. IS RESTING WITH THE HOB ELEVATED GREATER THAN 30 DEGREES. PT. IS RESTING WITH THE SIDERAILS UP X 2 WITH THE CALL LIGHT IN PLACE.
[2018-12-05 03:34] LABS: MEAN CORPUSCULAR HEMOGLOBIN 38.1 pg (27.5-34.5); PLATELET COUNT 154 x10^3/uL (130-400); RED BLOOD COUNT 2.96 x10^6/uL (4.38-5.82); RED CELL DISTRIBUTION WIDTH 15.9 % (9.4-14.8)
[2018-12-05 03:37] LABS: BASOPHILS # (AUTO) 0.03 x10^3/uL (0-0.1); BASOPHILS % (AUTO) 0 % (0-1); EOSINOPHILS # (AUTO) 0.17 x10^3/uL (0-0.4); EOSINOPHILS % (AUTO) 3 % (1-7); LYMPHOCYTES # (AUTO) 2.19 x10^3/uL (1-3.4); LYMPHOCYTES % (AUTO) 36 % (22-44); MD NO; MONOCYTES # (AUTO) 0.44 x10^3/uL (0.2-0.8); MONOCYTES % (AUTO) 7 % (2-9); NEUTROPHILS # (AUTO) 3.26 x10^3/uL (1.8-6.8); NEUTROPHILS % (AUTO) 54 % (42-75)
[2018-12-05 03:39] LABS: INTERNATIONAL NORMALIZED RATIO 1.73 (0.93-1.1)
[2018-12-05 03:41] LABS: ALANINE AMINOTRANSFERASE 27 U/L (12-78); ALBUMIN 3.6 g/dL (3.4-5.0); ANION GAP 7 mmol/L (5-15); CALCIUM 7.9 mg/dL (8.5-10.1); CHLORIDE 106 mmol/L (98-107); CREATININE 1.57 mg/dL (0.7-1.3)
[2018-12-05] MEDS ORDERED: methylPREDNISolone SOD SUCC 125 MG/2 ML ONE ×2 (03:43→11:11)
[2018-12-05 03:45] LABS: ALKALINE PHOSPHATASE 115 U/L (45-117); BILIRUBIN,TOTAL 0.2 mg/dL (0.2-1.0); TOTAL PROTEIN 7.6 g/dL (6.4-8.2); TROPONIN I < 0.015 ng/mL (0.000-0.045)
--- NOTE | 2018-12-05 04:30 | NUR ---
NO CHANGES AT THIS TIME. PT. IS RESTING.
[2018-12-05] MEDS ORDERED: ACETAMINOPHEN 325 MG TABLET PO PRN (05:00)
[2018-12-05] MEDS ORDERED: ALBUTEROL/IPRATROPIUM 2.5MG/0.5MG, 3 ML HHN SCH (05:00)
[2018-12-05] MEDS ORDERED: GUAIFENESIN/DM 200-20MG, 10ML UDC PO PRN (05:00)
--- NOTE | 2018-12-05 05:00 | NUR ---
RN REVIEWED PT.'S MEDICATION WITH HIM. PT. REMAINS MONITORED AND IS RESTING WITHOUT CONCERNS. VSS.
[2018-12-05] MEDS ORDERED: CEFTRIAXONE PMX 1GM/50ML 50 ML ONE (05:59)
[2018-12-05] MEDS: CEFTRIAXONE PMX 1GM/50ML 50 ML IV SCH (06:09)
[2018-12-05] MEDS ORDERED: ASPIRIN 81 MG TABLET EC ONE (06:15)
[2018-12-05] MEDS: ASPIRIN 81 MG TABLET EC PO SCH (06:17)
--- NOTE | 2018-12-05 06:18 | NUR ---
PT. IS RESTING WITHOUT CONCERNS. IV ABX ARE INFUSING. BLOOD CULTURES WERE OBTAINED PRIOR TO MEDICATIONS BEING GIVEN. SIDERAILS REMAIN UP X 2 WITH THE CALL LIGHT IN PLACE.
[2018-12-05] MEDS: DOXYCYCLINE 100 MG in DEXTROSE 5% 250 ML IVPB SCH ×2 (06:54→17:55)
--- NOTE | 2018-12-05 06:55 | NUR ---
RECEIVED BEDSIDE REPORT FROM TEODORA NUNN. NO ACUTE DISTRESS NOTED. PT RESTING ON GURNEY. NO NEEDS REQUESTED AT THIS TIME.
[2018-12-05] MEDS ORDERED: IPRATROPIUM 0.5 MG/2.5 ML INHA NPPB SCH (07:00)
--- NOTE | 2018-12-05 07:48 | NUR ---
SPOKE WITH DR. POMPA. PAMELA TO ORDER CARDIAC DIET TRAY FOR PT.
[2018-12-05] MEDS ORDERED: CARBAMAZEPINE 200 MG TABLET ONE (07:58)
[2018-12-05] MEDS ORDERED: METOPROLOL TARTRATE 50 MG TABLET ONE (07:59)
[2018-12-05] MEDS ORDERED: DOCUSATE 100 MG CAPSULE ONE (07:59)
[2018-12-05] MEDS ORDERED: GABAPENTIN 300 MG CAPSULE ONE (07:59)
[2018-12-05] MEDS ORDERED: MAGNESIUM OXIDE 400 MG TABLET ONE (07:59)
--- NOTE | 2018-12-05 08:01 | NUR ---
med request sent to pharmacy
--- NOTE | 2018-12-05 08:14 | NUR ---
PT SITTING UP ON SIDE OF [place]. PT HAS SLIPPERS ON. NO ACUTE DISTRESS NOTED. PT STATES "IT FEELS BETTER TO SIT UP. THANK YOU." AWAITING DIET TRAY AND MEDS FROM PHARMACY. NO ACUTE DISTRESS NOTED.
--- NOTE | 2018-12-05 08:24 | NUR ---
diet tray delivered.
[2018-12-05] MEDS: CHOLECALCIFEROL 1,000 UNIT TABLET PO SCH (08:54)
[2018-12-05] MEDS: CYANOCOBALAMIN 1,000 MCG TABLET PO SCH (08:56)
[2018-12-05] MEDS: METOPROLOL TARTRATE 50 MG TABLET PO SCH ×2 (08:57→21:13)
[2018-12-05] MEDS: GABAPENTIN 300 MG CAPSULE PO SCH (08:58)
[2018-12-05] MEDS: LEVOTHYROXINE 200 MCG TABLET PO SCH (08:58)
[2018-12-05] MEDS: FERROUS GLUCONATE 324 MG TABLET PO SCH ×3 (08:58→21:13)
[2018-12-05] MEDS: LOSARTAN 50MG TABLET PO SCH (08:59)
[2018-12-05] MEDS: CARBAMAZEPINE 200 MG TABLET PO SCH ×2 (08:59→21:13)
[2018-12-05] MEDS ORDERED: FERROUS GLUCONATE 324 MG TABLET PO SCH (09:00)
[2018-12-05] MEDS: DOCUSATE 100 MG CAPSULE PO SCH (09:00)
[2018-12-05] MEDS ORDERED: TEMPLATE NON-FORMULARY MED. (Tiotropium Bromide** (Spiriva**) 18 MCG) INH SCH (09:00)
[2018-12-05] MEDS ORDERED: CYANOCOBALAMIN 1000 MCG PO SCH (09:00)
[2018-12-05] MEDS ORDERED: CHOLECALCIFEROL 1000 UNIT PO SCH (09:00)
[2018-12-05] MEDS: ALBUTEROL/IPRATROPIUM 2.5MG/0.5MG, 3 ML NPPB SCH ×2 (09:00→19:10)
[2018-12-05] MEDS: MAGNESIUM OXIDE 400 MG TABLET PO SCH (09:00)
[2018-12-05] MEDS ORDERED: TEMPLATE NON-FORMULARY MED. (Aspirin** (Aspir 81**) 81 MG) PO SCH (09:00)
[2018-12-05] MEDS ORDERED: DOCUSATE CALCIUM 100 MG PO SCH (09:00)
--- NOTE | 2018-12-05 09:07 | NUR ---
[facility]SC TO ROOM FOR PT
--- NOTE | 2018-12-05 09:10 | NUR ---
PERFORMED 5 RIGHTS AND 3 CHECKS WITH PT MEDICATIONS. BARCODE SCANNER NOT WORKING AT THIS TIME.
--- NOTE | 2018-12-05 09:35 | NUR ---
pt back on [facility]. no acute distress noted. OXYGEN TURNED UP TO 4LPM. THAT IS WHAT PT WEARS AT HOME. PT VOIDED IN BSC. NO NEEDS REQUESTED AT THIS TIME. PT ATE 100% OF DIET TRAY.
--- NOTE | 2018-12-05 10:06 | NUR ---
BEDSIDE REPORT TO TEODORA GUAJARDO
--- NOTE | 2018-12-05 10:09 | NUR ---
BS REPORT FROM [place] ARAIZA, ASSUME CARE OF PT AT THIS TIME. PT RESTING, NAD, CALL LIGHT WITHIN REACH.
[2018-12-05] MEDS: methylPREDNISolone SOD SUCC 40 MG/ML IVPush SCH ×2 (11:15→19:41)
--- NOTE | 2018-12-05 11:15 | NUR ---
MED GIVEN PER EMAR. PT COMFORTABLE AT THIS TIME, VSS.
--- NOTE | 2018-12-05 11:46 | NUR ---
ED CARDIAC DIET TRAY ORDERED FOR PT. BROTHER AT BS.
--- NOTE | 2018-12-05 13:04 | NUR ---
MEAL TRAY WITH DECAF COFFEE PROVIDED. PT COMFORTABLE, NAD.
[2018-12-05 13:34] LABS: INTERNATIONAL NORMALIZED RATIO 1.7 (0.93-1.1); PROTHROMBIN TIME 17.7 Seconds (9.6-11.5)
--- NOTE | 2018-12-05 14:09 | NUR ---
REPORT TO RAJ ARAIZA, PT READY FOR TRANSPORT TO FLOOR.
[2018-12-05 14:37] VITALS: BP 141/73
[2018-12-05 16:01] VITALS: BP 141/73
[2018-12-05] MEDS ORDERED: WARFARIN 1 MG TABLET PO-COUM SCH (18:00)
[2018-12-05] MEDS ORDERED: WARFARIN 5 MG TABLET PO-COUM ONE (18:00)
[2018-12-05 19:25] VITALS: BP 123/62
[2018-12-05] MEDS: SIMVASTATIN 20 MG TABLET PO SCH (21:13)
[2018-12-06 01:08] VITALS: BP 113/54
[2018-12-06] MEDS: methylPREDNISolone SOD SUCC 40 MG/ML IVPush SCH ×2 (04:00→08:14)
[2018-12-06] MEDS: DOXYCYCLINE 100 MG in DEXTROSE 5% 250 ML IVPB SCH ×2 (05:02→17:18)
[2018-12-06 05:31] LABS: INTERNATIONAL NORMALIZED RATIO 1.59 (0.93-1.1); PROTHROMBIN TIME 16.6 Seconds (9.6-11.5)
[2018-12-06] MEDS: CEFTRIAXONE PMX 1GM/50ML 50 ML IV SCH (06:14)
[2018-12-06 07:44] LABS: MEAN CORPUSCULAR HEMOGLOBIN 37.4 pg (27.5-34.5); MEAN CORPUSCULAR HGB CONC 33.5 g/dL (33.2-36.2); MEAN CORPUSCULAR VOLUME 111.6 fL (81-97); MEAN PLATELET VOLUME 8.7 fL (7.4-10.4); PLATELET COUNT 155 x10^3/uL (130-400); RED BLOOD COUNT 2.81 x10^6/uL (4.38-5.82); RED CELL DISTRIBUTION WIDTH 15.9 % (9.4-14.8)
[2018-12-06 07:49] LABS: ANION GAP 5 mmol/L (5-15); CALCIUM 8.6 mg/dL (8.5-10.1); CHLORIDE 105 mmol/L (98-107)
[2018-12-06 07:50] LABS: CREATININE 1.55 mg/dL (0.7-1.3)
[2018-12-06] MEDS: CHOLECALCIFEROL 1,000 UNIT TABLET PO SCH (08:14)
[2018-12-06] MEDS: CYANOCOBALAMIN 1,000 MCG TABLET PO SCH (08:14)
[2018-12-06] MEDS: GABAPENTIN 300 MG CAPSULE PO SCH (08:14)
[2018-12-06] MEDS: CARBAMAZEPINE 200 MG TABLET PO SCH ×2 (08:15→20:01)
[2018-12-06] MEDS: FERROUS GLUCONATE 324 MG TABLET PO SCH ×3 (08:15→20:01)
[2018-12-06] MEDS: LEVOTHYROXINE 200 MCG TABLET PO SCH (08:15)
[2018-12-06] MEDS: DOCUSATE 100 MG CAPSULE PO SCH (08:15)
[2018-12-06] MEDS: METOPROLOL TARTRATE 50 MG TABLET PO SCH ×2 (08:15→20:00)
[2018-12-06] MEDS: LOSARTAN 50MG TABLET PO SCH (08:15)
[2018-12-06] MEDS: ASPIRIN 81 MG TABLET EC PO SCH (08:16)
[2018-12-06] MEDS: MAGNESIUM OXIDE 400 MG TABLET PO SCH (08:16)
[2018-12-06 08:17] VITALS: BP 122/64
[2018-12-06] MEDS: ALBUTEROL/IPRATROPIUM 2.5MG/0.5MG, 3 ML NPPB SCH ×2 (08:20→10:36)
[2018-12-06 08:46] LABS: BASOPHILS # (AUTO) 0.01 x10^3/uL (0-0.1); BASOPHILS % (AUTO) 0 % (0-1); EOSINOPHILS # (AUTO) 0.01 x10^3/uL (0-0.4); EOSINOPHILS % (AUTO) 0 % (1-7); LYMPHOCYTES # (AUTO) 1.53 x10^3/uL (1-3.4); LYMPHOCYTES % (AUTO) 20 % (22-44); MD SCAN; MONOCYTES # (AUTO) 0.56 x10^3/uL (0.2-0.8); MONOCYTES % (AUTO) 7 % (2-9); NEUTROPHILS # (AUTO) 5.57 x10^3/uL (1.8-6.8); NEUTROPHILS % (AUTO) 73 % (42-75)
[2018-12-06 09:41] VITALS: BP 114/68
[2018-12-06] MEDS ORDERED: SODIUM CHLORIDE NASAL SPRAY 45ML BOTTLE NAS PRN (11:30)
[2018-12-06 13:10] VITALS: BP 119/67
[2018-12-06] MEDS: IPRATROPIUM NASAL 0.03%, 30ML NAS SCH ×3 (14:17→20:08)
[2018-12-06] MEDS ORDERED: WARFARIN 5 MG TABLET PO-COUM SCH (18:00)
[2018-12-06 19:31] VITALS: BP 125/69
[2018-12-06] MEDS: SIMVASTATIN 20 MG TABLET PO SCH (20:01)
[2018-12-06] MEDS ORDERED: methylPREDNISolone SOD SUCC 40 MG/ML IVPush SCH (21:00)
[2018-12-06 22:00] VITALS: BP 137/77
[2018-12-07 01:34] VITALS: BP 138/71
[2018-12-07] MEDS: DOXYCYCLINE 100 MG in DEXTROSE 5% 250 ML IVPB SCH ×2 (04:50→16:36)
[2018-12-07 05:14] LABS: INTERNATIONAL NORMALIZED RATIO 1.41 (0.93-1.1); PROTHROMBIN TIME 14.6 Seconds (9.6-11.5)
[2018-12-07 05:21] LABS: CALCIUM 8.7 mg/dL (8.5-10.1); CHLORIDE 104 mmol/L (98-107)
[2018-12-07 05:25] LABS: ANION GAP 6 mmol/L (5-15); CREATININE 1.64 mg/dL (0.7-1.3)
[2018-12-07] MEDS: CEFTRIAXONE PMX 1GM/50ML 50 ML IV SCH (06:07)
[2018-12-07] MEDS: ASPIRIN 81 MG TABLET EC PO SCH (06:08)
[2018-12-07 07:13] VITALS: BP 139/68
[2018-12-07] MEDS: ALBUTEROL/IPRATROPIUM 2.5MG/0.5MG, 3 ML NPPB SCH ×2 (07:45→19:25)
[2018-12-07] MEDS: CARBAMAZEPINE 200 MG TABLET PO SCH ×2 (08:01→20:29)
[2018-12-07] MEDS: FERROUS GLUCONATE 324 MG TABLET PO SCH ×3 (08:01→20:29)
[2018-12-07] MEDS: LEVOTHYROXINE 200 MCG TABLET PO SCH (08:02)
[2018-12-07] MEDS: GABAPENTIN 300 MG CAPSULE PO SCH (08:02)
[2018-12-07] MEDS: LOSARTAN 50MG TABLET PO SCH (08:02)
[2018-12-07] MEDS: METOPROLOL TARTRATE 50 MG TABLET PO SCH ×2 (08:02→20:30)
[2018-12-07] MEDS: MAGNESIUM OXIDE 400 MG TABLET PO SCH (08:02)
[2018-12-07] MEDS: DOCUSATE 100 MG CAPSULE PO SCH (08:02)
[2018-12-07] MEDS: CYANOCOBALAMIN 1,000 MCG TABLET PO SCH (08:02)
[2018-12-07] MEDS: CHOLECALCIFEROL 1,000 UNIT TABLET PO SCH (08:02)
[2018-12-07] MEDS: IPRATROPIUM NASAL 0.03%, 30ML NAS SCH ×3 (08:03→20:29)
[2018-12-07 12:43] VITALS: BP 131/73
[2018-12-07] MEDS ORDERED: WARFARIN 7.5 MG TABLET PO-COUM SCH (18:00)
[2018-12-07 19:41] VITALS: BP 124/65
[2018-12-07] MEDS: SIMVASTATIN 20 MG TABLET PO SCH (20:29)
[2018-12-08 01:51] VITALS: BP 119/66
[2018-12-08] MEDS: DOXYCYCLINE 100 MG in DEXTROSE 5% 250 ML IVPB SCH ×2 (04:50→17:35)
[2018-12-08 05:13] LABS: INTERNATIONAL NORMALIZED RATIO 1.42 (0.93-1.1); PROTHROMBIN TIME 14.7 Seconds (9.6-11.5)
[2018-12-08 05:16] LABS: ANION GAP 6 mmol/L (5-15); CALCIUM 8.6 mg/dL (8.5-10.1); CHLORIDE 104 mmol/L (98-107)
[2018-12-08] MEDS: ASPIRIN 81 MG TABLET EC PO SCH (06:19)
[2018-12-08] MEDS: CEFTRIAXONE PMX 1GM/50ML 50 ML IV SCH (06:19)
[2018-12-08 07:38] VITALS: BP 125/74
[2018-12-08] MEDS: ALBUTEROL/IPRATROPIUM 2.5MG/0.5MG, 3 ML NPPB SCH ×2 (07:55→20:00)
[2018-12-08] MEDS: DOCUSATE 100 MG CAPSULE PO SCH (08:33)
[2018-12-08] MEDS: GABAPENTIN 300 MG CAPSULE PO SCH (08:33)
[2018-12-08] MEDS: FERROUS GLUCONATE 324 MG TABLET PO SCH ×3 (08:34→20:51)
[2018-12-08] MEDS: METOPROLOL TARTRATE 50 MG TABLET PO SCH ×2 (08:34→20:51)
[2018-12-08] MEDS: CARBAMAZEPINE 200 MG TABLET PO SCH ×2 (08:34→20:51)
[2018-12-08] MEDS: LOSARTAN 50MG TABLET PO SCH (08:34)
[2018-12-08] MEDS: CYANOCOBALAMIN 1,000 MCG TABLET PO SCH (08:34)
[2018-12-08] MEDS: LEVOTHYROXINE 200 MCG TABLET PO SCH (08:34)
[2018-12-08] MEDS: MAGNESIUM OXIDE 400 MG TABLET PO SCH (08:35)
[2018-12-08] MEDS: CHOLECALCIFEROL 1,000 UNIT TABLET PO SCH (08:35)
[2018-12-08] MEDS: IPRATROPIUM NASAL 0.03%, 30ML NAS SCH ×3 (08:38→20:00)
[2018-12-08] MEDS ORDERED: PRED20TA PO (11:24)
[2018-12-08] MEDS ORDERED: AZIT500T5 PO (11:26)
[2018-12-08 13:04] VITALS: BP 126/75
[2018-12-08] MEDS ORDERED: WARFARIN 10 MG TABLET PO-COUM ONE (18:00)
[2018-12-08 20:44] VITALS: BP 133/66
[2018-12-08] MEDS: SIMVASTATIN 20 MG TABLET PO SCH (20:51)
[2018-12-09 00:27] VITALS: BP 144/71
[2018-12-09] MEDS: DOXYCYCLINE 100 MG in DEXTROSE 5% 250 ML IVPB SCH ×2 (00:51→12:36)
[2018-12-09 04:56] LABS: INTERNATIONAL NORMALIZED RATIO 1.44 (0.93-1.1); PROTHROMBIN TIME 14.9 Seconds (9.6-11.5)
[2018-12-09] MEDS: CEFTRIAXONE PMX 1GM/50ML 50 ML IV SCH (05:50)
[2018-12-09] MEDS: ASPIRIN 81 MG TABLET EC PO SCH (05:50)
[2018-12-09] MEDS: ALBUTEROL/IPRATROPIUM 2.5MG/0.5MG, 3 ML NPPB SCH (06:49)
[2018-12-09 07:13] VITALS: BP 122/69
[2018-12-09] MEDS: DOCUSATE 100 MG CAPSULE PO SCH (08:33)
[2018-12-09] MEDS: METOPROLOL TARTRATE 50 MG TABLET PO SCH (08:34)
[2018-12-09] MEDS: FERROUS GLUCONATE 324 MG TABLET PO SCH ×2 (08:34→15:20)
[2018-12-09] MEDS: CHOLECALCIFEROL 1,000 UNIT TABLET PO SCH (08:34)
[2018-12-09] MEDS: MAGNESIUM OXIDE 400 MG TABLET PO SCH (08:34)
[2018-12-09] MEDS: LOSARTAN 50MG TABLET PO SCH (08:34)
[2018-12-09] MEDS: CYANOCOBALAMIN 1,000 MCG TABLET PO SCH (08:34)
[2018-12-09] MEDS: CARBAMAZEPINE 200 MG TABLET PO SCH (08:34)
[2018-12-09] MEDS: GABAPENTIN 300 MG CAPSULE PO SCH (08:34)
[2018-12-09] MEDS: IPRATROPIUM NASAL 0.03%, 30ML NAS SCH ×2 (08:38→15:19)
[2018-12-09] MEDS: LEVOTHYROXINE 200 MCG TABLET PO SCH (08:40)
[2018-12-09 13:39] VITALS: BP 115/64
[2018-12-09] MEDS ORDERED: WARF-36 PO (15:13)
[2018-12-09] MEDS ORDERED: WARFARIN 10 MG TABLET PO-COUM ONE (18:00)
== END 2018-12-09 15:25 | DRG 189 ==
LOC: ED 04:10 → EDIP 04:54 → 3NE 14:22
PROVIDERS: ADMIT Internal Medicine; ATTEND Internal Medicine
DX: J96.21 Acute and chronic respiratory failure with hypoxia (principal); J44.1 Chronic obstructive pulmonary disease with (acute) exacerbation; D68.59 Other primary thrombophilia; I12.9 Hypertensive chronic kidney disease with stage 1 through stage 4 chronic kidney disease, or unspecified chronic kidney disease; D64.9 Anemia, unspecified; E03.9 Hypothyroidism, unspecified; E78.00 Pure hypercholesterolemia, unspecified; E78.5 Hyperlipidemia, unspecified; G40.909 Epilepsy, unspecified, not intractable, without status epilepticus; I48.0 Paroxysmal atrial fibrillation; J43.9 Emphysema, unspecified; N18.3 Chronic kidney disease, stage 3 (moderate); Z79.01 Long term (current) use of anticoagulants; Z83.3 Family history of diabetes mellitus; Z87.891 Personal history of nicotine dependence; Z96.641 Presence of right artificial hip joint; Z99.81 Dependence on supplemental oxygen
CPT/HCPCS: 36415; 99285; J7620; 71045; 80048; 80053; 83880; 84484; 85025; 85610; 85730; 87040; 93005; 94640; 96374; G0378; J0696; J7060; J2920; J2930; J7512

== ENCOUNTER 2019-04-03 16:16 | Inpatient (IN) | payer OTHER ==
[~2019-04-03] VITALS: Ht 188 cm; Wt 132.2 kg
[~2019-04-03 16:16] MED LIST changes: +AZIT500T5 PO; +PRED20TA PO; +WARF-36 PO
[2019-04-03] MEDS ORDERED: SODIUM CHLORIDE 0.9% 1,000ML IVBOLUS ONE ×2 (16:30→17:30)
[2019-04-03] MEDS ORDERED: SODIUM CHLORIDE FLUSH 10ML SYR IVF ONE (16:30)
[2019-04-03] MEDS ORDERED: GABA300C10 PO (16:43)
[2019-04-03 16:48] LABS: MEAN CORPUSCULAR HEMOGLOBIN 36.4 pg (27.5-34.5); MEAN CORPUSCULAR HGB CONC 33.5 g/dL (33.2-36.2); MEAN CORPUSCULAR VOLUME 108.7 fL (81-97); MEAN PLATELET VOLUME 8.4 fL (7.4-10.4); PLATELET COUNT 155 x10^3/uL (130-400); RED BLOOD COUNT 2.69 x10^6/uL (4.38-5.82); RED CELL DISTRIBUTION WIDTH 15.8 % (9.4-14.8)
[2019-04-03 16:58] LABS: INTERNATIONAL NORMALIZED RATIO 2.3 (0.93-1.1); PROTHROMBIN TIME 23.4 Seconds (9.6-11.5)
[2019-04-03 17:01] LABS: ALANINE AMINOTRANSFERASE 27 U/L (12-78); ALBUMIN 2.8 g/dL (3.4-5.0); ANION GAP 4 mmol/L (5-15); CHLORIDE 108 mmol/L (98-107); CREATININE 2.09 mg/dL (0.7-1.3)
[2019-04-03 17:02] LABS: MD YES
[2019-04-03 17:05] LABS: ALKALINE PHOSPHATASE 67 U/L (45-117); ANISOCYTOSIS 1+; BANDS%(MANUAL) 25 % (0-7); BILIRUBIN,TOTAL 0.5 mg/dL (0.2-1.0); LYMPH#(MANUAL) 1.49 x10^3/uL (1-3.4); LYMPHS% (MANUAL) 12 % (22-44); MONOS#(MANUAL) 1.24 x10^3/uL (0.3-2.7); MONOS% (MANUAL) 10 % (2-9); SEG#(MANUAL) 6.57 x10^3/uL (1.8-6.8); SEGS% (MANUAL) 53 % (42-75); TOTAL PROTEIN 6.6 g/dL (6.4-8.2); TROPONIN I < 0.015 ng/mL (0.000-0.045)
[2019-04-03 17:06] LABS: <PLATELET ESTIMATE> ADEQUATE; <PLT MORPHOLOGY> NORMAL PLT MORPH; POLYCHROMASIA 1+
[2019-04-03] MEDS ORDERED: PIPERACILLIN/TAZO/PMX 3.375GM 50 ML IVPB ONE (17:30)
[2019-04-03] MEDS ORDERED: PIPERACILLIN/TAZO/PMX 3.375GM 50 ML ONE (17:40)
[2019-04-03] MEDS ORDERED: PIPERACILLIN/TAZO/PMX 3.375GM 50 ML IV SCH (19:00)
[2019-04-03] MEDS ORDERED: BISACODYL 10 MG SUPP PR PRN (19:00)
[2019-04-03] MEDS ORDERED: ACETAMINOPHEN 325 MG TABLET PO PRN (19:00)
[2019-04-03] MEDS ORDERED: POLYETHYLENE GLYCOL 17 GM PACKET PO PRN (19:00)
[2019-04-03] MEDS ORDERED: ONDANSETRON ODT 4 MG PO PRN (19:00)
[2019-04-03 19:16] LABS: MICROSCOPIC INDICATED
[2019-04-03 19:26] LABS: CULTURE INDICATED? NO
[2019-04-03] MEDS ORDERED: WARFARIN 10 MG TABLET PO-COUM SCH (19:52)
[2019-04-03] MEDS ORDERED: WARFARIN 5 MG TABLET PO-COUM SCH (19:52)
[2019-04-03] MEDS ORDERED: ALBUTEROL/IPRATROPIUM 2.5MG/0.5MG, 3 ML ONE (20:13)
[2019-04-03] MEDS ORDERED: ALBUTEROL/IPRATROPIUM 2.5MG/0.5MG, 3 ML NPPB PRN (20:30)
[2019-04-03] MEDS: ALBUTEROL/IPRATROPIUM 2.5MG/0.5MG, 3 ML NPPB SCH (21:00)
[2019-04-03 21:41] LABS: CLOSTRIDIUM DIFFICILE ANTIGEN POSITIVE; CLOSTRIDIUM DIFFICILE TOXIN POSITIVE (Negative)
[2019-04-03] MEDS: SIMVASTATIN 20 MG TABLET PO SCH (23:27)
[2019-04-03] MEDS: FERROUS GLUCONATE 324 MG TABLET PO SCH (23:27)
[2019-04-03] MEDS: SODIUM CHLORIDE 0.9% 1,000 ML IV SCH (23:28)
[2019-04-04] VITALS (7 sets, daily range): BP systolic 99–153; BP diastolic 54–69
[2019-04-04] MEDS: ALBUTEROL/IPRATROPIUM 2.5MG/0.5MG, 3 ML NPPB SCH ×4 (02:30→20:58)
[2019-04-04] MEDS: VANCOMYCIN 50 MG/ML ORAL SUSP PO SCH ×5 (02:51→22:16)
[2019-04-04 05:32] LABS: MEAN CORPUSCULAR HGB CONC 33.2 g/dL (33.2-36.2); MEAN CORPUSCULAR VOLUME 108.4 fL (81-97); MEAN PLATELET VOLUME 8.6 fL (7.4-10.4); PLATELET COUNT 155 x10^3/uL (130-400); RED BLOOD COUNT 2.82 x10^6/uL (4.38-5.82)
[2019-04-04 05:36] LABS: INTERNATIONAL NORMALIZED RATIO 2.35 (0.93-1.1); PROTHROMBIN TIME 23.9 Seconds (9.6-11.5)
[2019-04-04 05:38] LABS: ALANINE AMINOTRANSFERASE 21 U/L (12-78); ALBUMIN 2.6 g/dL (3.4-5.0); ANION GAP 6 mmol/L (5-15); CALCIUM 7.8 mg/dL (8.5-10.1); CHLORIDE 111 mmol/L (98-107); CREATININE 1.72 mg/dL (0.7-1.3)
[2019-04-04 05:40] LABS: ALKALINE PHOSPHATASE 63 U/L (45-117); BILIRUBIN,TOTAL 0.5 mg/dL (0.2-1.0); TOTAL PROTEIN 6.6 g/dL (6.4-8.2)
[2019-04-04 06:14] LABS: BASOPHILS # (AUTO) 0.07 x10^3/uL (0-0.1); BASOPHILS % (AUTO) 1 % (0-1); EOSINOPHILS # (AUTO) 0.02 x10^3/uL (0-0.4); EOSINOPHILS % (AUTO) 0 % (1-7); LYMPHOCYTES # (AUTO) 1.59 x10^3/uL (1-3.4); LYMPHOCYTES % (AUTO) 12 % (22-44); MD SCAN; MONOCYTES # (AUTO) 0.51 x10^3/uL (0.2-0.8); MONOCYTES % (AUTO) 4 % (2-9); NEUTROPHILS # (AUTO) 11.04 x10^3/uL (1.8-6.8); NEUTROPHILS % (AUTO) 83 % (42-75)
[2019-04-04] MEDS: LEVOTHYROXINE 50 MCG TABLET PO SCH (06:38)
[2019-04-04] MEDS: CYANOCOBALAMIN 1,000 MCG TABLET PO SCH (08:21)
[2019-04-04] MEDS: FOLIC ACID 1 MG TABLET PO SCH (08:21)
[2019-04-04] MEDS: SENNA/DOCUSATE TABLET PO SCH (08:21)
[2019-04-04] MEDS: SODIUM CHLORIDE 0.9% 1,000 ML IV SCH ×3 (08:21→22:05)
[2019-04-04] MEDS: ASPIRIN 81 MG TABLET EC PO SCH (08:21)
[2019-04-04] MEDS: GABAPENTIN 300 MG CAPSULE PO SCH ×2 (08:21→13:46)
[2019-04-04] MEDS: FERROUS GLUCONATE 324 MG TABLET PO SCH ×3 (08:21→22:15)
[2019-04-04] MEDS ORDERED: IPRATROPIUM 0.5 MG/2.5 ML INHA NPPB SCH (09:00)
[2019-04-04] MEDS ORDERED: DIGOXIN 0.25 MG/ML, 2ML IVPush ONE ×2 (16:30→23:00)
[2019-04-04 17:10] LABS: THYROID STIMULATING HORMONE 3.75 mIU/L (0.358-3.740)
[2019-04-04] MEDS ORDERED: AMIODARONE 900 MG in DEXTROSE 5% 482 ML IV PRN (17:30)
[2019-04-04] MEDS ORDERED: FILTER 0.22 MICRON IV PRN (17:30)
[2019-04-04] MEDS ORDERED: AMIODARONE IN D5W 100 ML IV ONE (18:30)
[2019-04-04] MEDS ORDERED: SODIUM CHLORIDE 0.9% 500 ML IV ONE (18:30)
[2019-04-04] MEDS ORDERED: AMIODARONE 150 MG in DEXTROSE 5% 100 ML IV ONE ×2 (18:30)
[2019-04-04] MEDS: SIMVASTATIN 20 MG TABLET PO SCH (22:15)
[2019-04-05 00:39] VITALS: BP 122/62
[2019-04-05] MEDS: ALBUTEROL/IPRATROPIUM 2.5MG/0.5MG, 3 ML NPPB SCH ×5 (02:47→23:18)
[2019-04-05 03:57] VITALS: BP 155/73
[2019-04-05] MEDS ORDERED: DIGOXIN 0.25 MG/ML, 2ML IVPush ONE (05:00)
[2019-04-05 06:39] LABS: MEAN CORPUSCULAR HEMOGLOBIN 34.8 pg (27.5-34.5); MEAN CORPUSCULAR HGB CONC 32.1 g/dL (33.2-36.2); MEAN CORPUSCULAR VOLUME 108.4 fL (81-97); MEAN PLATELET VOLUME 9.4 fL (7.4-10.4); PLATELET COUNT 155 x10^3/uL (130-400); RED BLOOD COUNT 3.04 x10^6/uL (4.38-5.82)
[2019-04-05 06:49] LABS: INTERNATIONAL NORMALIZED RATIO 1.76 (0.93-1.1); PROTHROMBIN TIME 18.1 Seconds (9.6-11.5)
[2019-04-05] MEDS: VANCOMYCIN 50 MG/ML ORAL SUSP PO SCH ×5 (06:49→19:54)
[2019-04-05] MEDS: SODIUM CHLORIDE 0.9% 1,000 ML IV SCH (06:49)
[2019-04-05] MEDS: LEVOTHYROXINE 50 MCG TABLET PO SCH (06:51)
[2019-04-05 06:54] LABS: ANION GAP 5 mmol/L (5-15); CALCIUM 7.7 mg/dL (8.5-10.1); CHLORIDE 112 mmol/L (98-107)
[2019-04-05 06:55] LABS: CREATININE 2.13 mg/dL (0.7-1.3)
[2019-04-05 07:12] LABS: MD YES
[2019-04-05] MEDS: METRONIDAZOLE PMX 500MG/100ML 100 ML IV SCH ×2 (07:30→19:44)
[2019-04-05 07:59] VITALS: BP 153/74
[2019-04-05] MEDS ORDERED: ETOMIDATE 20 MG/10 ML ONE (08:13)
[2019-04-05] MEDS ORDERED: PROPOFOL 10 MG/ML, 100ML IV ONE (08:13)
[2019-04-05] MEDS ORDERED: ROCURONIUM 10 MG/ML,10ML ONE (08:13)
[2019-04-05 08:59] LABS: <PLATELET ESTIMATE> ADEQUATE; <PLT MORPHOLOGY> NORMAL PLT MORPH; ANISOCYTOSIS 1+; BAND#(MANUAL) 3.26 x10^3/uL; BANDS%(MANUAL) 18 % (0-7); LYMPH#(MANUAL) 1.45 x10^3/uL (1-3.4); LYMPHS% (MANUAL) 8 % (22-44); SEG#(MANUAL) 13.39 x10^3/uL (1.8-6.8); SEGS% (MANUAL) 74 % (42-75)
[2019-04-05] MEDS: SENNA/DOCUSATE TABLET PO SCH (09:00)
[2019-04-05] MEDS: CYANOCOBALAMIN 1,000 MCG TABLET PO SCH (09:00)
[2019-04-05] MEDS: FOLIC ACID 1 MG TABLET PO SCH (09:00)
[2019-04-05] MEDS: GABAPENTIN 300 MG CAPSULE PO SCH (09:00)
[2019-04-05] MEDS: ASPIRIN 81 MG TABLET EC PO SCH (09:00)
[2019-04-05] MEDS: FERROUS GLUCONATE 324 MG TABLET PO SCH ×2 (09:00→16:00)
[2019-04-05] MEDS: LEVOTHYROXINE 100 MCG INJ IVPush SCH (09:24)
[2019-04-05] MEDS ORDERED: METOPROLOL TARTRATE 25 MG TABLET PO SCH (09:30)
[2019-04-05 14:00] VITALS: BP 115/68
[2019-04-05 15:46] LABS: MEAN CORPUSCULAR HEMOGLOBIN 34.6 pg (27.5-34.5); MEAN CORPUSCULAR HGB CONC 31.8 g/dL (33.2-36.2); MEAN CORPUSCULAR VOLUME 108.5 fL (81-97); MEAN PLATELET VOLUME 9.2 fL (7.4-10.4); PLATELET COUNT 164 x10^3/uL (130-400); RED BLOOD COUNT 3.21 x10^6/uL (4.38-5.82); RED CELL DISTRIBUTION WIDTH 16.6 % (9.4-14.8)
[2019-04-05 15:54] LABS: ANION GAP 5 mmol/L (5-15); CALCIUM 7.4 mg/dL (8.5-10.1); CHLORIDE 114 mmol/L (98-107); CREATININE 2.61 mg/dL (0.7-1.3)
[2019-04-05 16:11] LABS: MD YES
[2019-04-05 16:18] LABS: BAND#(MANUAL) 1.21 x10^3/uL; BANDS%(MANUAL) 6 % (0-7); LYMPH#(MANUAL) 1.21 x10^3/uL (1-3.4); LYMPHS% (MANUAL) 6 % (22-44); METAMYELOCYTES% (MANUAL) 3 % (0-1); MONOS#(MANUAL) 1.21 x10^3/uL (0.3-2.7); MONOS% (MANUAL) 6 % (2-9); SEG#(MANUAL) 15.88 x10^3/uL (1.8-6.8); SEGS% (MANUAL) 79 % (42-75)
[2019-04-05 16:19] LABS: <PLATELET ESTIMATE> ADEQUATE; <PLT MORPHOLOGY> NORMAL PLT MORPH; ANISOCYTOSIS 1+; PMNS WITH VACUOLES 1+; POLYCHROMASIA 1+; TOXIC GRAN 1+
[2019-04-05] MEDS ORDERED: FENTANYL PF 100 MCG/2ML ONE (16:32)
[2019-04-05] MEDS ORDERED: NOREPINEPHRINE 1 MG/ML, 4ML ONE (16:33)
[2019-04-05] MEDS: PROPOFOL 100 ML IV PRN ×2 (16:45→20:00)
[2019-04-05] MEDS ORDERED: FENTANYL PF 100 MCG/2ML IV ONE ×2 (17:00→17:30)
[2019-04-05] MEDS ORDERED: ROCURONIUM 10MG/ML,5ML IVPush ONE (17:00)
[2019-04-05] MEDS ORDERED: ETOMIDATE 20 MG/10 ML IVPush ONE (17:00)
[2019-04-05] MEDS ORDERED: SODIUM CHLORIDE 0.9% 1,000ML IVBOLUS ONE ×2 (17:30)
[2019-04-05] MEDS ORDERED: FENTANYL PF 2,500 MCG in SODIUM CHLORIDE 0.9% 200 ML IV PRN (17:41)
[2019-04-05] MEDS ORDERED: NOREPINEPHRINE 4 MG in SODIUM CHLORIDE 0.9% 246 ML IV PRN (17:41)
[2019-04-05] MEDS ORDERED: DEXTROSE 50%, 50ML SYRINGE IVPush PRN (18:00)
[2019-04-05] MEDS ORDERED: SENNA/DOCUSATE TABLET NG PRN (18:00)
[2019-04-05] MEDS ORDERED: SODIUM CHLORIDE 0.9% 1,000 ML IV SCH ×3 (18:00→18:55)
[2019-04-05] MEDS ORDERED: FENTANYL PF 100 MCG/2ML IVPush PRN (18:00)
[2019-04-05] MEDS ORDERED: SENNA 176 MG/5 ML ORAL SOL NG PRN (18:00)
[2019-04-05] MEDS ORDERED: GLUCAGON 1 MG IM PRN (18:00)
[2019-04-05] MEDS ORDERED: LIDOCAINE-MPF 1%, 2ML ENDO PRN (18:00)
[2019-04-05] MEDS ORDERED: BISACODYL 10 MG SUPP PR PRN (18:00)
[2019-04-05] MEDS ORDERED: PHARMACY MAY ADJ FOR RENAL FX MC SCH (18:00)
[2019-04-05] MEDS ORDERED: DEXTROSE 4 GM TAB.CHEW PO PRN (18:00)
[2019-04-05] MEDS ORDERED: LACTULOSE 20 GM/30 ML UDC NG PRN (18:00)
[2019-04-05 18:22] LABS: INTERNATIONAL NORMALIZED RATIO 2.47 (0.93-1.1)
[2019-04-05 18:24] LABS: ANION GAP 2 mmol/L (5-15); CALCIUM 6.9 mg/dL (8.5-10.1); CHLORIDE 116 mmol/L (98-107); CREATININE 2.86 mg/dL (0.7-1.3); TRIGLYCERIDES 185 mg/dL (50-200)
[2019-04-05 18:26] LABS: TROPONIN I 0.022 ng/mL (0.000-0.045)
[2019-04-05] MEDS: VASOPRESSIN 100 UNIT in SODIUM CHLORIDE 0.9% 495 ML IV PRN (18:32)
[2019-04-05] MEDS: PIPERACILLIN/TAZO/PMX 3.375GM 50 ML IV SCH (18:36)
[2019-04-05 18:46] LABS: MD YES; MEAN CORPUSCULAR HEMOGLOBIN 36.2 pg (27.5-34.5); MEAN CORPUSCULAR HGB CONC 32.8 g/dL (33.2-36.2); MEAN CORPUSCULAR VOLUME 110.2 fL (81-97); MEAN PLATELET VOLUME 9.5 fL (7.4-10.4); PLATELET COUNT 182 x10^3/uL (130-400); RED BLOOD COUNT 2.89 x10^6/uL (4.38-5.82); RED CELL DISTRIBUTION WIDTH 16.7 % (9.4-14.8)
[2019-04-05 18:48] LABS: BAND#(MANUAL) 2.53 x10^3/uL; BANDS%(MANUAL) 10 % (0-7); LYMPH#(MANUAL) 2.28 x10^3/uL (1-3.4); LYMPHS% (MANUAL) 9 % (22-44); METAMYELOCYTES# (MANUAL) 0.51 x10^3/uL (0-0); METAMYELOCYTES% (MANUAL) 2 % (0-1); MONOS#(MANUAL) 1.52 x10^3/uL (0.3-2.7); MONOS% (MANUAL) 6 % (2-9); SEG#(MANUAL) 18.47 x10^3/uL (1.8-6.8); SEGS% (MANUAL) 73 % (42-75)
[2019-04-05 18:50] LABS: ANISOCYTOSIS 1+
[2019-04-05 18:51] LABS: PMNS WITH VACUOLES 1+; TOXIC GRAN 1+
[2019-04-05 18:56] LABS: <PLATELET ESTIMATE> ADEQUATE; LARGE PLATELETS 1+
[2019-04-05] MEDS: ALBUTEROL/IPRATROPIUM 2.5MG/0.5MG, 3 ML INLINE SCH ×2 (19:00→22:40)
[2019-04-05 19:04] LABS: CULTURE INDICATED? YES; MICROSCOPIC INDICATED
[2019-04-05] MEDS ORDERED: SODIUM BICARB 8.4%, 50ML SYRINGE ONE (19:34)
[2019-04-05] MEDS: SODIUM CHLORIDE FLUSH 10ML SYR IVF SCH (19:44)
[2019-04-05] MEDS ORDERED: SODIUM BICARB 8.4%, 50ML SYRINGE IVPush ONE (20:00)
[2019-04-05] MEDS ORDERED: ALBUMIN HUMAN 5% 500 ML IV ONE (20:00)
[2019-04-05] MEDS: INSULIN LISPRO 100 UNITS/ML, PEN SQ-INSULIN SCH (20:57)
[2019-04-05] MEDS ORDERED: ATORVASTATIN 40 MG TABLET PO SCH (21:00)
[2019-04-05] MEDS: NOREPINEPHRINE 8 MG in SODIUM CHLORIDE 0.9% 242 ML IV PRN (22:25)
[2019-04-06] VITALS (10 sets, daily range): BP systolic 84–110; BP diastolic 45–59
[2019-04-06 00:58] LABS: TROPONIN I < 0.015 ng/mL (0.000-0.045)
[2019-04-06] MEDS: PROPOFOL 100 ML IV PRN ×4 (01:17→15:48)
[2019-04-06 02:20] LABS: MEAN CORPUSCULAR HEMOGLOBIN 35.7 pg (27.5-34.5); MEAN CORPUSCULAR HGB CONC 32.7 g/dL (33.2-36.2); MEAN CORPUSCULAR VOLUME 109.2 fL (81-97); MEAN PLATELET VOLUME 9.5 fL (7.4-10.4); PLATELET COUNT 187 x10^3/uL (130-400); RED BLOOD COUNT 3.03 x10^6/uL (4.38-5.82); RED CELL DISTRIBUTION WIDTH 16.3 % (9.4-14.8)
[2019-04-06 02:31] LABS: INTERNATIONAL NORMALIZED RATIO 3.48 (0.93-1.1); PROTHROMBIN TIME 34.8 Seconds (9.6-11.5)
[2019-04-06 02:33] LABS: ALANINE AMINOTRANSFERASE 24 U/L (12-78); ALBUMIN 1.9 g/dL (3.4-5.0); ANION GAP 8 mmol/L (5-15); CHLORIDE 116 mmol/L (98-107); CREATININE 3.37 mg/dL (0.7-1.3)
[2019-04-06 02:36] LABS: ALKALINE PHOSPHATASE 62 U/L (45-117); BILIRUBIN,TOTAL 0.7 mg/dL (0.2-1.0); TOTAL PROTEIN 5.3 g/dL (6.4-8.2)
[2019-04-06 02:44] LABS: MD YES
[2019-04-06] MEDS: ALBUTEROL/IPRATROPIUM 2.5MG/0.5MG, 3 ML INLINE SCH ×6 (02:45→23:10)
[2019-04-06 02:46] LABS: BAND#(MANUAL) 3.25 x10^3/uL; BANDS%(MANUAL) 14 % (0-7); LYMPH#(MANUAL) 2.78 x10^3/uL (1-3.4); LYMPHS% (MANUAL) 12 % (22-44); METAMYELOCYTES# (MANUAL) 0.46 x10^3/uL (0-0); METAMYELOCYTES% (MANUAL) 2 % (0-1); MONOS#(MANUAL) 0.93 x10^3/uL (0.3-2.7); MONOS% (MANUAL) 4 % (2-9); SEG#(MANUAL) 15.78 x10^3/uL (1.8-6.8); SEGS% (MANUAL) 68 % (42-75)
[2019-04-06 02:47] LABS: ANISOCYTOSIS 1+; PMNS WITH VACUOLES 1+; POLYCHROMASIA 1+; TOXIC GRAN 1+
[2019-04-06 02:48] LABS: <PLATELET ESTIMATE> ADEQUATE; <PLT MORPHOLOGY> NORMAL PLT MORPH
[2019-04-06] MEDS: METRONIDAZOLE PMX 500MG/100ML 100 ML IV SCH ×4 (03:40→21:58)
[2019-04-06] MEDS: NOREPINEPHRINE 8 MG in SODIUM CHLORIDE 0.9% 242 ML IV PRN ×3 (04:27→18:26)
[2019-04-06] MEDS ORDERED: SODIUM BICARB 8.4%, 50ML SYRINGE IVPush STA ×2 (05:24)
[2019-04-06] MEDS ORDERED: SODIUM BICARB 8.4%, 50ML SYRINGE ONE ×2 (05:27→18:09)
[2019-04-06] MEDS: VANCOMYCIN 50 MG/ML ORAL SUSP PO SCH ×4 (05:31→20:44)
[2019-04-06] MEDS: PIPERACILLIN/TAZO/PMX 3.375GM 50 ML IV SCH ×2 (05:44→18:13)
[2019-04-06] MEDS: INSULIN LISPRO 100 UNITS/ML, PEN SQ-INSULIN SCH ×4 (06:45→20:43)
[2019-04-06] MEDS ORDERED: PHYTONADIONE 10 MG in SODIUM CHLORIDE 0.9% 50 ML IV ONE (07:30)
[2019-04-06] MEDS ORDERED: PANTOPRAZOLE 40 MG IV IV SCH (09:00)
[2019-04-06] MEDS: FOLIC ACID 1 MG TABLET PO SCH (09:00)
[2019-04-06] MEDS: CYANOCOBALAMIN 1,000 MCG TABLET PO SCH (09:00)
[2019-04-06] MEDS: ASPIRIN 81 MG TABLET EC PO SCH (09:00)
[2019-04-06] MEDS: SODIUM CHLORIDE 0.9% 1,000 ML IV SCH (09:51)
[2019-04-06] MEDS: SODIUM CHLORIDE FLUSH 10ML SYR IVF SCH ×2 (09:52→20:44)
[2019-04-06] MEDS: LEVOTHYROXINE 100 MCG INJ IVPush SCH (10:15)
[2019-04-06 11:11] LABS: ANION GAP 9 mmol/L (5-15); CALCIUM 7.3 mg/dL (8.5-10.1); CHLORIDE 115 mmol/L (98-107); CREATININE 4.02 mg/dL (0.7-1.3)
[2019-04-06] MEDS: ESOMEPRAZOLE 40 MG IV IVPush SCH (11:14)
[2019-04-06] MEDS ORDERED: MAGNESIUM SULFATE PMX 2GM/50ML 50 ML ONE (14:22)
[2019-04-06] MEDS ORDERED: AMIODARONE 900 MG in DEXTROSE 5% 482 ML IV PRN (14:26)
[2019-04-06] MEDS ORDERED: AMIODARONE 150MG/100ML PREMIX IV ONE (14:30)
[2019-04-06] MEDS ORDERED: FILTER 0.22 MICRON IV PRN (14:30)
[2019-04-06] MEDS ORDERED: HUM PROTHROMBIN CPLX IVPush ONE (14:30)
[2019-04-06] MEDS ORDERED: [UNRECOGNIZED DRUG - OTHER] IVPush ONE (14:30)
[2019-04-06] MEDS ORDERED: AMIODARONE IN D5W 100 ML IV ONE ×2 (14:30→15:00)
[2019-04-06] MEDS ORDERED: ALBUMIN HUMAN 25% 100 ML IV ONE (15:30)
[2019-04-06] MEDS ORDERED: PHENYLEPHRINE 20 MG in SODIUM CHLORIDE 0.9% 248 ML IV PRN (15:30)
[2019-04-06 17:55] LABS: INTERNATIONAL NORMALIZED RATIO 1.06 (0.93-1.1)
[2019-04-06 17:57] LABS: PROTHROMBIN TIME 11.1 Seconds (9.6-11.5)
[2019-04-06 17:59] LABS: ALBUMIN 2.3 g/dL (3.4-5.0); ANION GAP 7 mmol/L (5-15); CALCIUM 7.1 mg/dL (8.5-10.1); CHLORIDE 113 mmol/L (98-107)
[2019-04-06 18:02] LABS: ALANINE AMINOTRANSFERASE 25 U/L (12-78); ALKALINE PHOSPHATASE 76 U/L (45-117); BILIRUBIN,TOTAL 0.8 mg/dL (0.2-1.0); CREATININE 4.55 mg/dL (0.7-1.3); TOTAL PROTEIN 5.7 g/dL (6.4-8.2)
[2019-04-06] MEDS ORDERED: SODIUM BICARB 8.4%, 50ML SYRINGE IVPush ONE (18:30)
[2019-04-07] MEDS ORDERED: CALCIUM CHLORIDE 10%, 10ML SYR ONE
[2019-04-07] MEDS: SODIUM CHLORIDE 0.9% 1,000 ML IV SCH ×2 (00:21→10:54)
[2019-04-07] MEDS: PROPOFOL 100 ML IV PRN ×2 (00:49→09:48)
[2019-04-07] MEDS: ALBUTEROL/IPRATROPIUM 2.5MG/0.5MG, 3 ML INLINE SCH ×4 (02:50→14:55)
[2019-04-07] MEDS: NOREPINEPHRINE 8 MG in SODIUM CHLORIDE 0.9% 242 ML IV PRN (02:57)
[2019-04-07 03:11] LABS: MEAN CORPUSCULAR HEMOGLOBIN 35.8 pg (27.5-34.5); MEAN CORPUSCULAR HGB CONC 32.2 g/dL (33.2-36.2); MEAN CORPUSCULAR VOLUME 111.2 fL (81-97); MEAN PLATELET VOLUME 9.3 fL (7.4-10.4); PLATELET COUNT 171 x10^3/uL (130-400); RED BLOOD COUNT 2.93 x10^6/uL (4.38-5.82); RED CELL DISTRIBUTION WIDTH 16.7 % (9.4-14.8)
[2019-04-07 03:21] LABS: INTERNATIONAL NORMALIZED RATIO 1.09 (0.93-1.1); PROTHROMBIN TIME 11.4 Seconds (9.6-11.5)
[2019-04-07 03:23] LABS: ALANINE AMINOTRANSFERASE 22 U/L (12-78); ALBUMIN 1.8 g/dL (3.4-5.0); ANION GAP 7 mmol/L (5-15); CALCIUM 7.1 mg/dL (8.5-10.1); CHLORIDE 114 mmol/L (98-107)
[2019-04-07 03:25] LABS: ALKALINE PHOSPHATASE 94 U/L (45-117); BILIRUBIN,TOTAL 0.7 mg/dL (0.2-1.0); CREATININE 4.98 mg/dL (0.7-1.3); TOTAL PROTEIN 5.4 g/dL (6.4-8.2)
[2019-04-07 03:41] LABS: MD YES
[2019-04-07 03:49] LABS: ANISOCYTOSIS 1+; BAND#(MANUAL) 4.62 x10^3/uL; BANDS%(MANUAL) 22 % (0-7); EOS#(MANUAL) 0.21 x10^3/uL (0.0-0.4); EOS% (MANUAL) 1 % (1-7); LYMPH#(MANUAL) 1.05 x10^3/uL (1-3.4); LYMPHS% (MANUAL) 5 % (22-44); METAMYELOCYTES# (MANUAL) 0.42 x10^3/uL (0-0); METAMYELOCYTES% (MANUAL) 2 % (0-1); MONOS#(MANUAL) 1.47 x10^3/uL (0.3-2.7); MONOS% (MANUAL) 7 % (2-9); MYELOCYTES# (MANUAL) 0.21 x10^3/uL (0-0); MYELOCYTES% (MANUAL) 1 % (0-0); SEG#(MANUAL) 13.02 x10^3/uL (1.8-6.8); SEGS% (MANUAL) 62 % (42-75)
[2019-04-07 03:50] LABS: <PLATELET ESTIMATE> ADEQUATE; <PLT MORPHOLOGY> NORMAL PLT MORPH; POLYCHROMASIA 1+
[2019-04-07] MEDS: METRONIDAZOLE PMX 500MG/100ML 100 ML IV SCH ×2 (04:00→10:54)
[2019-04-07] MEDS ORDERED: AMIODARONE IN D5W 100 ML IV ONE (05:00)
[2019-04-07] MEDS: PIPERACILLIN/TAZO/PMX 3.375GM 50 ML IV SCH (05:20)
[2019-04-07] MEDS: VANCOMYCIN 50 MG/ML ORAL SUSP PO SCH ×2 (05:20→10:54)
[2019-04-07] MEDS ORDERED: SODIUM CHLORIDE 0.9%, 500ML IVBOLUS ONE (06:30)
[2019-04-07] MEDS: CYANOCOBALAMIN 1,000 MCG TABLET PO SCH (07:49)
[2019-04-07] MEDS: ASPIRIN 81 MG TABLET EC PO SCH (07:49)
[2019-04-07] MEDS: ALBUMIN HUMAN 25% 100 ML IV SCH ×2 (07:49→14:20)
[2019-04-07] MEDS: FOLIC ACID 1 MG TABLET PO SCH (07:49)
[2019-04-07] MEDS: SODIUM CHLORIDE FLUSH 10ML SYR IVF SCH (07:49)
[2019-04-07] MEDS: INSULIN LISPRO 100 UNITS/ML, PEN SQ-INSULIN SCH ×2 (07:54→10:54)
[2019-04-07] MEDS ORDERED: FIDAXOMICIN 200 MG TABLET PO SCH (09:00)
[2019-04-07] MEDS: LEVOTHYROXINE 100 MCG INJ IVPush SCH (09:05)
[2019-04-07] MEDS: ESOMEPRAZOLE 40 MG IV IVPush SCH (09:05)
[2019-04-07] MEDS ORDERED: PHENYLEPHRINE 80 MG in SODIUM CHLORIDE 0.9% 242 ML IV PRN (09:09)
[2019-04-07] MEDS ORDERED: NOREPINEPHRINE 16 MG in SODIUM CHLORIDE 0.9% 234 ML IV PRN (09:12)
[2019-04-07] MEDS: VASOPRESSIN 100 UNIT in SODIUM CHLORIDE 0.9% 495 ML IV PRN (09:48)
[2019-04-07] MEDS ORDERED: LIDOCAINE-MPF 1%, 5ML ONE (10:40)
[2019-04-07 11:20] LABS: ANION GAP 7 mmol/L (5-15); CALCIUM 6.9 mg/dL (8.5-10.1); CHLORIDE 114 mmol/L (98-107); CREATININE 5.29 mg/dL (0.7-1.3)
[2019-04-07] MEDS ORDERED: SODIUM BICARB 8.4%, 50ML SYRINGE ONE ×3 (12:00→15:45)
[2019-04-07] MEDS ORDERED: CALCIUM CHLORIDE 13.6 MEQ/10 ML ONE (12:00)
[2019-04-07] MEDS ORDERED: EPINEPHRINE SYRINGE 0.1 MG/ML, 10ML ONE ×2 (12:00→15:45)
[2019-04-07] MEDS ORDERED: DIGOXIN 0.25 MG/ML, 2ML ONE (15:39)
[2019-04-07] MEDS ORDERED: MAGNESIUM SULFATE PMX 2GM/50ML 50 ML ONE (15:41)
[2019-04-08] MEDS ORDERED: PHENYLEPHRINE 80 MG in SODIUM CHLORIDE 0.9% 242 ML IV PRN (09:09)
== END 2019-04-07 15:58 | disposition expired | DRG 871 ==
LOC: ED 17:26 → EDIP 19:19 → 4EST 19:44 → 5SO 04-04 17:47 → CCU 04-05 16:15
PROVIDERS: ADMIT Family Medicine; ATTEND Family Medicine
PROC: 5A1935Z Respiratory Ventilation, Less than 24 Consecutive Hours (ICD-10-PCS; 2019-04-05)
PROC: 30233R1 Transfusion of Nonautologous Platelets into Peripheral Vein, Percutaneous Approach (ICD-10-PCS; 2019-04-06)
PROC: 5A12012 Performance of Cardiac Output, Single, Manual (ICD-10-PCS; principal; 2019-04-07)
PROC: 5A1935Z Respiratory Ventilation, Less than 24 Consecutive Hours (ICD-10-PCS; 2019-04-07)
PROC: 0W9G3ZZ Drainage of Peritoneal Cavity, Percutaneous Approach (ICD-10-PCS; 2019-04-07)
PROC: 02HV33Z Insertion of Infusion Device into Superior Vena Cava, Percutaneous Approach (ICD-10-PCS; 2019-04-07)
PROC: B548ZZA Ultrasonography of Superior Vena Cava, Guidance (ICD-10-PCS; 2019-04-07)
DX: A41.9 Sepsis, unspecified organism (principal); I50.31 Acute diastolic (congestive) heart failure; E43 Unspecified severe protein-calorie malnutrition; G92 Toxic encephalopathy; J96.21 Acute and chronic respiratory failure with hypoxia; N17.0 Acute kidney failure with tubular necrosis; R65.21 Severe sepsis with septic shock; J69.0 Pneumonitis due to inhalation of food and vomit; E87.2 Acidosis; I13.0 Hypertensive heart and chronic kidney disease with heart failure and stage 1 through stage 4 chronic kidney disease, or unspecified chronic kidney disease; I47.2 Ventricular tachycardia; I48.92 Unspecified atrial flutter; J98.11 Atelectasis; T79.A3XA Traumatic compartment syndrome of abdomen, initial encounter; A04.72 Enterocolitis due to Clostridium difficile, not specified as recurrent; D68.69 Other thrombophilia; Z99.11 Dependence on respirator [ventilator] status; D50.9 Iron deficiency anemia, unspecified; D63.1 Anemia in chronic kidney disease; E03.9 Hypothyroidism, unspecified; E66.01 Morbid (severe) obesity due to excess calories; E78.00 Pure hypercholesterolemia, unspecified; E78.5 Hyperlipidemia, unspecified; G40.909 Epilepsy, unspecified, not intractable, without status epilepticus; G89.29 Other chronic pain; I25.10 Atherosclerotic heart disease of native coronary artery without angina pectoris; I48.0 Paroxysmal atrial fibrillation; I49.01 Ventricular fibrillation; J43.9 Emphysema, unspecified; K40.90 Unilateral inguinal hernia, without obstruction or gangrene, not specified as recurrent; K59.00 Constipation, unspecified; K80.20 Calculus of gallbladder without cholecystitis without obstruction; M19.90 Unspecified osteoarthritis, unspecified site; N05.9 Unspecified nephritic syndrome with unspecified morphologic changes; N18.3 Chronic kidney disease, stage 3 (moderate); R57.1 Hypovolemic shock; Z96.641 Presence of right artificial hip joint; W17.89XA Other fall from one level to another, initial encounter; Y93.89 Activity, other specified; Y92.89 Other specified places as the place of occurrence of the external cause; Y99.8 Other external cause status; Z83.3 Family history of diabetes mellitus; Z99.81 Dependence on supplemental oxygen; Z87.891 Personal history of nicotine dependence; Z68.37 Body mass index [BMI] 37.0-37.9, adult; Z79.899 Other long term (current) drug therapy
CPT/HCPCS: 36415; 36600; 74018; 77001; 82945; 84145; 96361; 99291; J3370; J7620; 36556; 49083; 71045; 74176; 76705; 76937; 80048; 80053; 80162; 81001; 82607; 82803; 82962; 83605; 83615; 83735; 83880; 84100; 84157; 84439; 84443; 84478; 84484; 85014; 85018; 85025; 85610; 85730; 86705; 86706; 86850; 86900; 87040; 87070; 87077; 87081; 87086; 87186; 87205; 87324; 87340; 89051; 92950; 93005; 94002; 94003; 94640; 96365; G0378; J2543; J2704; J3010; J3430; P9045; P9047; Q0162; Q9957; C1750; C1751; C1932; C8924; J0282; J1160; J1642; J1815; J2370; J7030; J7040; J7050; J7060; P9017